=== PATIENT | female | born 1985 | race Caucasian/White ===

== ENCOUNTER 2016-12-12 15:18 | Outpatient (CLI) | payer OTHER ==
--- NOTE | 2016-12-12 16:01 | L&D Flow Sheet ---
LD Flowsheet Datetime Report Generated by CPN: 12/12/2016 16:00 Datetime: 12/12/2016 15:58 NBP Sys/Lona/Mean (mmHg): 126 (QS system process) : 68 (QS system process) : 91 (QS system process) Pulse: 79 (QS system process) Datetime: 12/12/2016 15:43 NBP Sys/Lona/Mean (mmHg): 118 (QS system process) : 62 (QS system process) : 85 (QS system process) Pulse: 86 (QS system process)
[2016-12-12 16:24] LABS: ABSOLUTE BASOPHILS # (AUTO) 0.1 10^3/uL (0.0-0.2); ABSOLUTE LYMPHOCYTES (AUTO) 2.6 10^3/uL (0.5-4.7); ABSOLUTE MONOCYTES (AUTO) 0.8 10^3/uL (0.1-1.4); ABSOLUTE NEUT (AUTO) 7.7 10^3/uL (1.7-8.2); BASOPHILS % (AUTO) 0.5 % (0-2); EOSINOPHILS % (AUTO) 0.4 % (0-6); HEMATOCRIT 32.6 % (36.0-47.0); HEMOGLOBIN 10.7 g/dL (12.0-15.5); HGB HCT DIFFERENCE -0.5; LYMPHOCYTES % (AUTO) 23.5 % (13-45); MEAN CORPUSCULAR HEMOGLOBIN 28.1 pg (27.0-33.4); MEAN CORPUSCULAR HGB CONC 32.9 g/dL (32.0-36.0); MEAN CORPUSCULAR VOLUME 85 fl (80-97); MONOCYTES % (AUTO) 7.3 % (3-13); RED BLOOD COUNT 3.82 10^6/uL (3.72-5.28); RED CELL DISTRIBUTION WIDTH 14.8 % (11.5-14.0); SEGMENTED NEUTROPHILS % (AUTO) 68.3 % (42-78); WHITE BLOOD COUNT 11.2 10^3/uL (4.0-10.5)
[2016-12-12 16:28] LABS: APPEARANCE,URINE SLIGHTLY-CLOUDY; BILIRUBIN,URINE NEGATIVE (NEGATIVE); GLUCOSE, URINE NEGATIVE (NEGATIVE); KETONES,URINE NEGATIVE (NEGATIVE); LEUKOCYTE ESTERASE,URINE NEGATIVE (NEGATIVE); NITRITE,URINE NEGATIVE (NEGATIVE); PROTEIN,URINE 30 mg/dL (NEGATIVE); URINE SPECIFIC GRAVITY 1.024
[2016-12-12 16:42] LABS: ALANINE AMINOTRANSFERASE 44 U/L (9-52); ALBUMIN 3.2 g/dL (3.5-5.0); ALKALINE PHOSPHATASE 127 U/L (38-126); ANION GAP 13 (5-19); ASPARTATE AMINO TRANSFERASE 29 U/L (14-36); BILIRUBIN,TOTAL 0.5 mg/dL (0.2-1.3); BLOOD UREA NITROGEN 10 mg/dL (7-20); CALCIUM 8.9 mg/dL (8.4-10.2); CARBON DIOXIDE 16 mmol/L (22-30); CHLORIDE 107 mmol/L (98-107); CREATININE RESULT 0.51 mg/dL (0.52-1.25); GLUCOSE 87 mg/dL (75-110); LDH 452 U/L (313-618); POTASSIUM 4.1 mmol/L (3.6-5.0); SODIUM 135.7 mmol/L (137-145); URIC ACID 5.1 mg/dL (2.5-6.2)
[2016-12-12 16:52] LABS: URINE BARBITURATES SCREEN NEGATIVE; URINE METHADONE SCREEN NEGATIVE; URINE OPIATES LOW NEGATIVE; URINE PHENCYCLIDINE SCREEN NEGATIVE
--- NOTE | 2016-12-12 17:56 | Non Stress Test Report ---
Non Stress Test Datetime Report Generated by CPN: 12/12/2016 17:55 DEMOGRAPHIC EGA NST: 40.0 INDICATION Indication for Study: Ordered by Provider Indication for Study (NST) Other: LABOR CHECK- ELEVATED BP'S MONITORING Monitor Explained: Monitor Explained; Test Explained; Patient Verbalized Understanding Time on Monitor: 12/20/2016 15:39 Time off Monitor: 12/12/2016 17:22 NST Duration: -12901 NST INTERVENTIONS NST Interventions: PO Hydration; Reposition Patient BABY A: [id number] BABY A Movement : Present Contraction Frequency : NONE FHR Baseline : 135 Accelerations : 15X15 Decelerations : None Variability : Moderate 6-25bpm NST Review: Meets Criteria for Reactive NST NST Review and Verified By : Tammie Camp RNC NST Results: Reactive NST REPORT Report Trigger: Send Report
--- NOTE | 2016-12-12 18:01 | L&D Flow Sheet ---
LD Flowsheet Datetime Report Generated by CPN: 12/12/2016 18:00 Datetime: 12/12/2016 17:22 Stage of : OB Triage (Sarah Rasheed RN) Respirations: 16 (Sarah Rasheed RN) Monitor Mode: External (Sarah Rasheed RN) Monitor Interventions for UA: [place]ley Adjusted (Sarah Rasheed RN) Frequency (min): NONE (Sarah Rasheed RN) Resting Tone (Palpate): Relaxed (Sarah Rasheed RN) Monitor Mode: External US (Sarah Rasheed RN) Monitor Interventions for FHR: Ultrasound Adjusted (Sarah Rasheed RN) FHR Baseline Rate : 135 (Sarah Rasheed RN) FHR Baseline Changes: No Baseline Change (Sarah Rasheed RN) Variability: Moderate 6-25 bpm (Sarah Rasheed RN) Accelerations: 15X15 (Sarah Rasheed RN) Decelerations: None (Sarah Rasheed, RN) Pain Scale: 0 (Sarah Rasheed, RN) Pain Presence: None/Denies (Sarah Rasheed, RN) Pain Relief Measures: Comfort Measures (Sarah Rasheed, RN) Patient Position/Activity: Left Lateral; Semi-Fowlers (Sarah Rasheed, RN) Comfort Measures: Family Support (Sarah Rasheed, RN) I/O Interventions: Up to BR (Sarah Rasheed, RN) Instructional Method: Verbal; Written; Patient Instructed; Family/Support Person Instructed; Verbalized Understanding (Sarah Rasheed, RN) Plan of Care: Plan of Care Discussed; Labor; Gestational Hypertension/Preeclampsia/Eclampsia (Sarah Rasheed, RN) Pain Management: Pain Scale/Goals; Comfort Measures (Sarah Rasheed, RN) Related: Common Discomforts of ; Maternal Physical Changes; Maternal Emotional Changes; Nutrition; Hydration; Activity and Rest (Sarah Rasheed, RN) Teaching Comments: LABOR SIGNS _ KICK COUNTS CARE NOTES (Sarah Rasheed, RN) Communication: RN at Bedside; RN Reviewed Strip; Provider Orders Received; Report Given to @ Carine MARTINEZ CNM (Sarah Rasheed, RN) Notification Reason: Status Update; Status; Uterine Activity; Maternal Vital Sign Change; Lab/Diagnostic Study (Sarah Rasheed, RN) Communication Comments: REVIEWED BP'S, LABS, STRIP REVIEWED- ORDERS TO D/C HOME. PT D/C IN STABLE CONDITION W/O C/O @ 3763 ACCOMPANIED BY FAMILY. (Sarah Rasheed, DOMINIQUE) LaborFlag: OB Triage (QS system process) Datetime: 12/12/2016 17:13 Stage of : OB Triage (Sarah Rasheed RN) NBP Sys/Lona/Mean (mmHg): 125 (QS system process) : 62 (QS system process) : 85 (QS system process) Pulse: 71 (QS system process) Respirations: 16 (Sarah Rasheed RN) Monitor Mode: External (Sarah Rasheed RN) Monitor Interventions for UA: [place]ley Adjusted (Sarah Rasheed RN) Frequency (min): NONE (Sarah Rasheed RN) Resting Tone (Palpate): Relaxed (Sarah Rasheed RN) Monitor Mode: External US (Sarah Rasheed RN) Monitor Interventions for FHR: Ultrasound Adjusted (Sarah Rasheed RN) FHR Baseline Changes: No Baseline Change (Sarah Rasheed RN) Variability: Moderate 6-25 bpm (Sarah Rasheed RN) Accelerations: 15X15 (Sarah Rasheed, DOMINIQUE) Decelerations: None (Sarah Rasheed RN) Pain Relief Measures: Comfort Measures (Sarah Rasheed RN) Patient Position/Activity: Left Tilt; Semi-Fowlers (Sarah Rasheed, DOMINIQUE) Comfort Measures: Family Support (Sarah Rasheed RN) Communication: RN at Bedside; RN Reviewed Strip (Sarah Rasheed RN) LaborFlag: OB Triage (QS system process) Datetime: 12/12/2016 16:58 NBP Sys/Lona/Mean (mmHg): 127 (QS system process) : 62 (QS system process) : 88 (QS system process) Pulse: 68 (QS system process) LaborFlag: OB Triage (QS system process) Datetime: 12/12/2016 16:45 Stage of : OB Triage (Sarah Rasheed RN) NBP Sys/Lona/Mean (mmHg): 132 (QS system process) : 63 (QS system process) : 90 (QS system process) Pulse: 64 (QS system process) Respirations: 16 (Sarah Rasheed RN) Monitor Mode: External (Sarah Rasheed RN) Frequency (min): NONE (Sarah Rasheed RN) Resting Tone (Palpate): Relaxed (Sarah Rasheed RN) Monitor Mode: External US (Sarah Rasheed RN) Monitor Interventions for FHR: Ultrasound Adjusted (Sarah Rasheed RN) FHR Baseline Rate : 135 (Sarah Rasheed RN) FHR Baseline Changes: No Baseline Change (Sarah Rasheed, DOMINIQUE) Variability: Moderate 6-25 bpm (Sarah Rasheed, RN) Accelerations: 15X15 (Sarah Rasheed, RN) Decelerations: None (Sarah Rasheed RN) Pain Presence: None/Denies (Sarah Rasheed RN) Pain Relief Measures: Comfort Measures (Sarah Rasheed RN) Patient Position/Activity: Left Tilt; Semi-Fowlers (Sarah Rasheed, DOMINIQUE) Comfort Measures: Family Support (Sarah Rasheed RN) Communication: RN at Bedside; RN Reviewed Strip (Sarah Rasheed RN) LaborFlag: OB Triage (QS system process) Datetime: 12/12/2016 16:31 I/O Interventions: Up to BR (Sarah Rasheed, RN) Datetime: 12/12/2016 16:29 NBP Sys/Lona/Mean (mmHg): 135 (QS system process) : 71 (QS system process) : 98 (QS system process) Pulse: 83 (QS system process) LaborFlag: OB Triage (QS system process) Datetime: 12/12/2016 16:13 Stage of : OB Triage (Sarah Rasheed RN) NBP Sys/Lona/Mean (mmHg): 129 (QS system process) : 74 (QS system process) : 95 (QS system process) Pulse: 73 (QS system process) Respirations: 16 (Sarah Rasheed, DOMINIQUE) Monitor Mode: External (Sarah Rasheed RN) Monitor Interventions for UA: [place]ley Adjusted (Sarah Rasheed, RN) Frequency (min): NONE (Sarah Rasheed, RN) Resting Tone (Palpate): Relaxed (Sarah Rasheed, DOMINIQUE) Monitor Mode: External US (Sarah Rasheed, RN) Monitor Interventions for FHR: Ultrasound Adjusted (Sarah Rasheed, DOMINIQUE) Comments: UTD -MOVING EFM (Sarah Rasheed, RN) Pain Presence: None/Denies (Sarah Rasheed, DOMINIQUE) Pain Type: N/A (Sarah Rasheed, DOMINIQUE) Pain Relief Measures: Comfort Measures (Sarah Rasheed, DOMINIQUE) Patient Position/Activity: Left Tilt; Semi-Fowlers (Sarah Rasheed, DOMINIQUE) Comfort Measures: Family Support (Sarah Rasheed, DOMINIQUE) Communication: RN at Bedside; RN Reviewed Strip (Sarah Rasheed, DOMINIQUE) LaborFlag: OB Triage (QS system process)
== END 2016-12-12 17:33 | disposition home or self-care (01) ==
LOC: LC 15:18
PROVIDERS: ATTEND Obstetrics & Gynecology
PROC: 4A1HXCZ Monitoring of Products of Conception, Cardiac Rate, External Approach (ICD-10-PCS; principal; 2016-12-12)
DX: O16.3 Unspecified maternal hypertension, third trimester (principal); Z3A.40 40 weeks gestation of pregnancy
CPT/HCPCS: 36415; 59025; 80053; 80307; 81001; 83615; 84550; 85025

== ENCOUNTER 2016-12-19 13:52 | Inpatient (IN) | payer OTHER ==
[2016-12-19] MEDS ORDERED: RINGERS SOLUTION,LACTATED 1,000 ML IV ONE (14:13)
[2016-12-19] MEDS ORDERED: RINGERS SOLUTION,LACTATED 1,000 ML IV PRN (14:13)
[2016-12-19 14:48] LABS: AMNISURE (ROM) POSITIVE (NEGATIVE)
[2016-12-19] MEDS ORDERED: OXYTOCIN/NORMAL SALINE 1,000 ML IV PRN (14:58)
[2016-12-19] MEDS ORDERED: OXYTOCIN/NORMAL SALINE 20 UNIT/1,000 ML RTUINJ ONE (15:03)
[2016-12-19 15:04] LABS: APPEARANCE,URINE SLIGHTLY-CLOUDY; BILIRUBIN,URINE NEGATIVE (NEGATIVE); GLUCOSE, URINE NEGATIVE (NEGATIVE); KETONES,URINE NEGATIVE (NEGATIVE); LEUKOCYTE ESTERASE,URINE NEGATIVE (NEGATIVE); NITRITE,URINE NEGATIVE (NEGATIVE); PROTEIN,URINE 30 mg/dL (NEGATIVE); URINE SPECIFIC GRAVITY 1.024; UROBILINOGEN,URINE NEGATIVE mg/dL (<2.0)
[2016-12-19] MEDS ORDERED: PENICILLIN G-K 5 MILLION UNIT VIAL ONE ×3 (15:04→23:32)
[2016-12-19 15:05] LABS: ABSOLUTE BASOPHILS # (AUTO) 0.1 10^3/uL (0.0-0.2); ABSOLUTE LYMPHOCYTES (AUTO) 2.4 10^3/uL (0.5-4.7); ABSOLUTE MONOCYTES (AUTO) 0.8 10^3/uL (0.1-1.4); ABSOLUTE NEUT (AUTO) 7.1 10^3/uL (1.7-8.2); BASOPHILS % (AUTO) 0.5 % (0-2); EOSINOPHILS % (AUTO) 0.2 % (0-6); HEMATOCRIT 33.5 % (36.0-47.0); HEMOGLOBIN 11.1 g/dL (12.0-15.5); HGB HCT DIFFERENCE -0.2; LYMPHOCYTES % (AUTO) 23.4 % (13-45); MEAN CORPUSCULAR HEMOGLOBIN 28.4 pg (27.0-33.4); MEAN CORPUSCULAR HGB CONC 33.2 g/dL (32.0-36.0); MEAN CORPUSCULAR VOLUME 86 fl (80-97); RED CELL DISTRIBUTION WIDTH 15.4 % (11.5-14.0); SEGMENTED NEUTROPHILS % (AUTO) 67.9 % (42-78); WHITE BLOOD COUNT 10.4 10^3/uL (4.0-10.5)
[2016-12-19 15:07] LABS: URINE BARBITURATES SCREEN NEGATIVE; URINE METHADONE SCREEN NEGATIVE; URINE OPIATES LOW NEGATIVE; URINE PHENCYCLIDINE SCREEN NEGATIVE
[2016-12-19 15:12] LABS: ALANINE AMINOTRANSFERASE 38 U/L (9-52); ALBUMIN 3.2 g/dL (3.5-5.0); ALKALINE PHOSPHATASE 140 U/L (38-126); ANION GAP 9 (5-19); ASPARTATE AMINO TRANSFERASE 21 U/L (14-36); BILIRUBIN,TOTAL 0.4 mg/dL (0.2-1.3); BLOOD UREA NITROGEN 11 mg/dL (7-20); CALCIUM 9.3 mg/dL (8.4-10.2); CARBON DIOXIDE 20 mmol/L (22-30); CHLORIDE 107 mmol/L (98-107); CREATININE RESULT 0.62 mg/dL (0.52-1.25); GLUCOSE 102 mg/dL (75-110); LDH 397 U/L (313-618); POTASSIUM 4.4 mmol/L (3.6-5.0); SODIUM 135.8 mmol/L (137-145); TOTAL PROTEIN 6.3 g/dL (6.3-8.2); URIC ACID 5.4 mg/dL (2.5-6.2)
--- NOTE | 2016-12-19 16:00 | L&D Flow Sheet ---
LD Flowsheet Datetime Report Generated by CPN: 12/19/2016 16:00 Datetime: 12/19/2016 15:47 NBP Sys/Lona/Mean (mmHg): 141 (QS system process) : 78 (QS system process) : 104 (QS system process) Pulse: 77 (QS system process) LaborFlag: OB Triage (QS system process) Datetime: 12/19/2016 15:45 Pitocin (milliunit): Pitocin Increased to (milliunits) @ 4 (Caron Vitrano, RN) Datetime: 12/19/2016 15:33 NBP Sys/Lona/Mean (mmHg): 156 (QS system process) : 91 (QS system process) : 116 (QS system process) Pulse: 93 (QS system process) LaborFlag: OB Triage (QS system process) Datetime: 12/19/2016 15:31 I/O Interventions: Up to BR (Caron Vitrano, RN) Datetime: 12/19/2016 15:28 Temperature (F): 98.5 (Caron Vitrano, RN) Temperature (C): 36.9 (QS system process) Temperature Route: Axillary (Caron Vitrano, RN) LaborFlag: OB Triage (QS system process) Datetime: 12/19/2016 15:20 Pitocin (milliunit): Pitocin Started (milliunits) @ 2; Pitocin 20 Units in 1000ml NS (Caronheydi Elkins, RN) Antibiotics: Start Antibiotics; Penicillin IV (Units) @ [id number] (Caron Severo, RN) Datetime: 12/19/2016 15:15 I/O Interventions: Up to BR (Caron Randano, RN) Datetime: 12/19/2016 15:13 Monitor Interventions for FHR: Ultrasound Adjusted (Caron Vitrano, RN) Datetime: 12/19/2016 15:12 IV/Blood Work: IV Infusing per Order; New IV Bag Hung; IV Bag Number @ 2 (Caron DOMINIQUE Elkins) Patient Care Comments: 125 mL/hour (Caron Severo RN) Instructional Method: Verbal; Patient Instructed; Family/Support Person Instructed; Verbalized Understanding (Caron Elkins RN) Plan of Care: Plan of Care Discussed (Caron Elkins RN) Teaching Comments: Answered pt questions (Caron DOMINIQUE Elkins) Datetime: 12/19/2016 15:06 I/O Interventions: Up to BR (Caron Vitrano, RN) Datetime: 12/19/2016 15:02 NBP Sys/Lona/Mean (mmHg): 139 (QS system process) : 63 (QS system process) : 90 (QS system process) Pulse: 74 (QS system process) LaborFlag: OB Triage (QS system process) Datetime: 12/19/2016 14:59 Communication Comments: Dr. Kelly on unit, reviewed strip. Reviewed pt history, nursing assessment, SVE, toco tracing, FHTs. Orders received to start Pitocin 20 units at 2 mU/min increasing q 30 by 2 mU/min to a max of 20 mU/min or until an adequate pattern of labor is established. (Caron Severo, RN) Datetime: 12/19/2016 14:50 Membrane Status: Ruptured (Caron Vitrano, RN) Membranes Rupture Method: Spontaneous (Caron Vitrano, RN) Datetime: 12/19/2016 14:49 I/O Interventions: Up to BR (Caron Vitrano, RN) Datetime: 12/19/2016 14:40 Patient Care Comments: Consents reviewed and signed (Caron Vitrano, RN) Datetime: 12/19/2016 14:37 NBP Sys/Lona/Mean (mmHg): 148 (QS system process) : 97 (QS system process) : 108 (QS system process) Pulse: 86 (QS system process) Respirations: 16 (Caron Vitrano, RN) LaborFlag: OB Triage (QS system process) Datetime: 12/19/2016 14:33 Patient Care Comments: Labs drawn (Caron Vitrano, RN) Datetime: 12/19/2016 14:30 Monitor Mode: External; Palpation (Tammie Camp, RNC) Frequency (min): irregular (Tammie Camp, RNC) Quality: Mild (Tammie Camp, RNC) Duration (sec): 50-70 (Tammie Camp, RNC) Duration Criteria: Less than Two 120 Second Contractions (Tammie Camp, RNC) Pattern: Normal: <= 5 Contractions in 10 Minutes (Tammie Camp, RNC) Resting Tone (Palpate): Relaxed (Tammie Camp, RNC) Monitor Mode: External US; Auscultation (Tammie Camp, RNC) FHR Baseline Rate : 135 (Tammie Camp, RNC) FHR Baseline Changes: No Baseline Change (Tammie Camp, RNC) Variability: Moderate 6-25 bpm (Tammie Camp, RNC) Accelerations: 15X15 (Tammie Camp, RNC) Decelerations: None (Tammie Camp, RNC) Datetime: 12/19/2016 14:25 Patient Care Comments: Amnisure collected and sent (Caron Vitrano, RN) Datetime: 12/19/2016 14:24 IV/Blood Work: IV Started; IV Bolus Started (Caron Vitrano, RN) Patient Care Comments: 18 G R wrist site WNL, LR bolusing per order (Caron Vitrano, RN) Datetime: 12/19/2016 14:17 NBP Sys/Lona/Mean (mmHg): 147 (QS system process) : 84 (QS system process) : 109 (QS system process) Pulse: 89 (QS system process) Respirations: 16 (Caron Randano, RN) Pain Scale: 0 (Caron Vitrano, RN) Pain Presence: None/Denies (Caron Vitrano, RN) Pain Type: N/A (Caron Vitrano, RN) Vaginal Bleeding: None (Caron Vitrano, RN) Level of Consciousness: Fully Conscious (Caron Vitrano, RN) DTR's/Clonus: DTRs 2+; No Clonus (Caron Vitrano, RN) Headache: Denies (Caron Vitrano, RN) Breath Sounds, Left: Clear and Equal (Caron Vitrano, RN) Breath Sounds, Right: Clear and Equal (Caron Vitrano, RN) Nausea/Vomiting: Denies (Caron Vitrano, RN) RUQ Epigastric Pain: Denies (Caron Vitrano, RN) LaborFlag: OB Triage (QS system process) Datetime: 12/19/2016 14:14 Patient Position/Activity: Right Tilt; Semi-Fowlers (Caron Elkins RN) I/O Interventions: Clear Liquids Given (Caron Elkins RN) Instructional Method: Verbal; Patient Instructed; Family/Support Person Instructed; Verbalized Understanding (Caron Vitrano, RN) Plan of Care: Plan of Care Discussed (Caron Elkins RN) Unit Routine: [place] to Room; Call Bryson; Bed; Unit Personnel; Monitoring; Safety/Fall Risk Prevention; Bathroom Privileges (Caron Elkins RN)
[2016-12-19] MEDS ORDERED: ONDANSETRON HCL INJ/PF 4 MG/2 ML SDV IV ONE (16:38)
[2016-12-19] MEDS ORDERED: ONDANSETRON HCL INJ/PF 4 MG/2 ML SDV ONE (16:38)
[2016-12-19] MEDS ORDERED: NALBUPHINE HCL INJ 10 MG/1 ML AMPULE INJ ONE (17:25)
[2016-12-19] MEDS ORDERED: NALBUPHINE HCL INJ 10 MG/1 ML AMPULE ONE ×2 (17:26→17:36)
[2016-12-19] MEDS ORDERED: NALBUPHINE HCL INJ 10 MG/1 ML AMPULE IM ONE (17:37)
--- NOTE | 2016-12-19 18:00 | L&D Flow Sheet ---
LD Flowsheet Datetime Report Generated by CPN: 12/19/2016 18:00 Datetime: 12/19/2016 17:57 NBP Sys/Lona/Mean (mmHg): 164 (QS system process) : 85 (QS system process) : 117 (QS system process) Pulse: 87 (QS system process) Patient Position/Activity: Left Lateral; Peanut Ball (Caron Vitrano, RN) LaborFlag: OB Triage (QS system process) Datetime: 12/19/2016 17:45 Monitor Mode: External (Caron Vitrano, RN) Frequency (min): 2-4 (Caron Vitrano, RN) Quality: Mild/Moderate (Caron Vitrano, RN) Duration (sec): 50-70 (Caron Vitrano, RN) Duration Criteria: Less than Two 120 Second Contractions (Caron Vitrano, RN) Pattern: Normal: <= 5 Contractions in 10 Minutes (Caron Vitrano, RN) Resting Tone (Palpate): Relaxed (Caron Vitrano, RN) Monitor Mode: External US (Caron Vitrano, RN) FHR Baseline Rate : 130 (Caron Vitrano, RN) Variability: Moderate 6-25 bpm (Caron Vitrano, RN) Accelerations: 15X15 (Caron Vitrano, RN) Decelerations: Early (Caron Vitrano, RN) Pitocin (milliunit): Pitocin Increased to (milliunits) @ 12 (Caron Vitrano, RN) Datetime: 12/19/2016 17:39 Medication Comments: Nubain 10 mg IM (Caron Vitrano, RN) Datetime: 12/19/2016 17:34 Communication Comments: Orders received from Kiana Kebede, [facility] to also administer Nubain 10 mg IM x1 now (Caron Vitrano, RN) Datetime: 12/19/2016 17:32 Temperature (F): 98.1 (Caron Vitrano, RN) Temperature (C): 36.7 (QS system process) Temperature Route: Oral (Caron Vitrano, RN) LaborFlag: OB Triage (QS system process) Datetime: 12/19/2016 17:31 Monitor Interventions for UA: Corn Adjusted (Caron Vitrano, RN) Monitor Interventions for FHR: Ultrasound Adjusted (Caron Vitrano, RN) Datetime: 12/19/2016 17:30 Monitor Mode: External; Palpation (Caron Vitrano, RN) Frequency (min): Irregular (Caron Vitrano, RN) Quality: Mild/Moderate (Caron Vitrano, RN) Duration (sec): 40-60 (Caron Vitrano, RN) Duration Criteria: Less than Two 120 Second Contractions (Caron Vitrano, RN) Pattern: Normal: <= 5 Contractions in 10 Minutes (Caron Vitrano, RN) Resting Tone (Palpate): Relaxed (Caron Vitrano, RN) Monitor Mode: External US (Caron Vitrano, RN) FHR Baseline Rate : 135 (Caron Vitrano, RN) Variability: Moderate 6-25 bpm (Caron Vitrano, RN) Accelerations: 15X15 (Caron Vitrano, RN) Decelerations: None (Caron Vitrano, RN) Pitocin (milliunit): Pitocin Remains (milliunits) @ 10 (Caron Vitrano, RN) I/O Interventions: Ice Chips Given (Caron Vitrano, RN) Datetime: 12/19/2016 17:29 Monitor Interventions for UA: Corn Adjusted (Caron Vitrano, RN) Datetime: 12/19/2016 17:28 Medication Comments: Nubain 10 mg IV (Caron Elkins, RN) Datetime: 12/19/2016 17:24 Communication Comments: Call to Dr. Kelly, reviewed pt condition, SVE, toco tracing, FHTs, pt request for medication. Orders for Nubain 10 mg IV x1 now and epidural PRN. (Caron Elkins RN) Datetime: 12/19/2016 17:19 Instructional Method: Verbal; Patient Instructed; Family/Support Person Instructed; Verbalized Understanding (Caron Elkins RN) Plan of Care: Plan of Care Discussed (Caron Elkins RN) Pain Management: PRN Medications; Pain Scale/Goals; Comfort Measures (Caron Elkins RN) Teaching Comments: Reviewed pain management and pt desires and interventions. Pt requests IV medication at this time. (Caron Elkins RN) Datetime: 12/19/2016 17:18 Pain Coping: Requesting Pain Medication or Epidural (Caron Elkins RN) Dilatation (cm): 2.0 (Caron Elkins RN) Effacement (%): 90 (Caron Elkins RN) Station: -1 (Caron Elkins RN) Exam by: Erica Elkins RN (Caron Elkins RN) Datetime: 12/19/2016 17:15 Contraction Comments: Pt off monitor in restroom; unable to assess tracing (Caron Elkins RN) Comments: Pt off monitor in restroom; unable to assess tracing (Caron Elkins RN) Pitocin (milliunit): Pitocin Increased to (milliunits) @ 10 (Caron Elkins RN) Datetime: 12/19/2016 17:14 Monitor Interventions for UA: Corn Adjusted (Caron Vitrano, RN) Monitor Interventions for FHR: Ultrasound Adjusted (Caron Vitrano, RN) Patient Position/Activity: Left Lateral (Caron Vitrano, RN) Datetime: 12/19/2016 17:00 Monitor Mode: External; Palpation (Caron Vitrano, RN) Frequency (min): 2-5 (Caron Vitrano, RN) Quality: Mild (Caron Vitrano, RN) Duration (sec): 50-70 (Caron Vitrano, RN) Duration Criteria: Less than Two 120 Second Contractions (Caron Vitrano, RN) Pattern: Normal: <= 5 Contractions in 10 Minutes (Caron Vitrano, RN) Resting Tone (Palpate): Relaxed (Caron Vitrano, RN) Monitor Mode: External US (Caron Vitrano, RN) FHR Baseline Rate : 135 (Caron Vitrano, RN) Variability: Moderate 6-25 bpm (Caron Vitrano, RN) Accelerations: 15X15 (Caron Vitrano, RN) Decelerations: None (Caron Vitrano, RN) Pitocin (milliunit): Pitocin Remains (milliunits) @ 8 (Caron Vitrano, RN) Datetime: 12/19/2016 16:57 I/O Interventions: Up to BR (Caron Vitrano, RN) Datetime: 12/19/2016 16:48 NBP Sys/Lona/Mean (mmHg): 125 (QS system process) : 66 (QS system process) : 89 (QS system process) Pulse: 76 (QS system process) Respirations: 16 (Caron Vitrano, RN) LaborFlag: OB Triage (QS system process) Datetime: 12/19/2016 16:45 Monitor Mode: External; Palpation (Caron Vitrano, RN) Frequency (min): Irregular (Caron Vitrano, RN) Quality: Mild (Caron Vitrano, RN) Duration (sec): 50-60 (Caron Vitrano, RN) Duration Criteria: Less than Two 120 Second Contractions (Caron Vitrano, RN) Pattern: Normal: <= 5 Contractions in 10 Minutes (Caron Vitrano, RN) Resting Tone (Palpate): Relaxed (Caron Vitrano, RN) Monitor Mode: External US (Caron Vitrano, RN) FHR Baseline Rate : 145 (Caron Vitrano, RN) Variability: Moderate 6-25 bpm (Caron Vitrano, RN) Accelerations: 15X15 (Caron Vitrano, RN) Decelerations: None (Caron Vitrano, RN) Pitocin (milliunit): Pitocin Increased to (milliunits) @ 8 (Caron Vitrano, RN) Datetime: 12/19/2016 16:44 Monitor Interventions for UA: Corn Adjusted (Caron Vitrano, RN) Datetime: 12/19/2016 16:40 Medication Comments: Zofran 8 mg IV (Caron Vitrano, RN) Datetime: 12/19/2016 16:39 Patient Position/Activity: Right Tilt; Semi-Fowlers (Caron Vitrano, RN) Patient Care Comments: Pt back to bed in stable condition (Caron Vitrano, RN) Datetime: 12/19/2016 16:34 I/O Interventions: Up to BR (Caron Vitrano, RN) Patient Care Comments: Pt complaining of nausea. (Caron Vitrano, RN) Communication Comments: Orders received from Dr. Kelly for Zofran 8 mg IV x1 now for nausea. (Caron Vitrano, RN) Datetime: 12/19/2016 16:30 Monitor Mode: External (Caron Vitrano, RN) Frequency (min): Irregular (Caron Vitrano, RN) Quality: Mild (Caron Vitrano, RN) Duration (sec): 40-60 (Caron Vitrano, RN) Duration Criteria: Less than Two 120 Second Contractions (Caron Vitrano, RN) Pattern: Normal: <= 5 Contractions in 10 Minutes (Caron Vitrano, RN) Resting Tone (Palpate): Relaxed (Caron Vitrano, RN) Monitor Mode: External US (Caron Vitrano, RN) FHR Baseline Rate : 145 (Caron Vitrano, RN) Variability: Moderate 6-25 bpm (Caron Vitrano, RN) Accelerations: 15X15 (Caron Vitrano, RN) Decelerations: None (Caron Vitrano, RN) Comments: Tracing maternal d/t pt movement. RN at bedside adjusting US. (Caron Vitrano, RN) Pitocin (milliunit): Pitocin Remains (milliunits) @ 6 (Caron Vitrano, RN) Datetime: 12/19/2016 16:21 I/O Interventions: Up to BR (Caron Vitrano, RN) Datetime: 12/19/2016 16:17 NBP Sys/Lona/Mean (mmHg): 138 (QS system process) : 83 (QS system process) : 106 (QS system process) Pulse: 86 (QS system process) Respirations: 16 (Caron Vitrano, RN) LaborFlag: OB Triage (QS system process) Datetime: 12/19/2016 16:15 Monitor Mode: External (Caron Vitrano, RN) Frequency (min): Occasional (Caron Vitrano, RN) Quality: Mild (Caron Vitrano, RN) Duration (sec): 50-60 (Caron Vitrano, RN) Duration Criteria: Less than Two 120 Second Contractions (Caron Vitrano, RN) Pattern: Normal: <= 5 Contractions in 10 Minutes (Caron Vitrano, RN) Resting Tone (Palpate): Relaxed (Caron Vitrano, RN) Monitor Mode: External US (Caron Vitrano, RN) FHR Baseline Rate : 145 (Caron Vitrano, RN) Variability: Moderate 6-25 bpm (Caron Vitrano, RN) Accelerations: 15X15 (Caron Elkins, RN) Decelerations: None (Caron Elkins, RN) Pain Presence: Intermittent (Caron Elkins RN) Pain Type: Cramping (Caron Elkins RN) Pain Location: Back (Caron Elkins RN) Pain Relief Measures: Comfort Measures (Caron Elkins RN) Pain Assessment Comments: Warm pack provided (Caron Elkins RN) Pitocin (milliunit): Pitocin Increased to (milliunits) @ 6 (Caron Elkins RN) LaborFlag: OB Triage (QS system process) Datetime: 12/19/2016 16:07 Monitor Interventions for UA: Corn Adjusted (Caron Elkins RN) Patient Care Comments: Up to rocking chair (Caron Elkins RN) Datetime: 12/19/2016 16:00 Monitor Mode: External; Palpation (Caron Elkins RN) Frequency (min): Occasional (Caron Elkins RN) Quality: Mild (Caron Elkins RN) Duration (sec): 50-60 (Caron Elkins RN) Duration Criteria: Less than Two 120 Second Contractions (Caron Elkins RN) Pattern: Normal: <= 5 Contractions in 10 Minutes (Caron Elkins RN) Resting Tone (Palpate): Relaxed (Caron Elkins RN) Monitor Mode: External US (Caron Elkins RN) FHR Baseline Rate : 145 (Caron Elkins RN) Variability: Moderate 6-25 bpm (Caron Elkins RN) Accelerations: 15X15 (Caron Elkins RN) Decelerations: None (Caron Elkins RN) Pitocin (milliunit): Pitocin Remains (milliunits) @ 4 (Caron Elkins RN) I/O Interventions: Up to BR (Caron Elkins RN)
[2016-12-19] MEDS ORDERED: BUPIVACAINE HCL 0.25 % INJ/PF (2.5 MG/1 ML) 30 ML VIAL ONE (18:33)
[2016-12-19] MEDS ORDERED: EPHEDRINE SULFATE INJ 50 MG/1 ML AMPULE ONE (18:33)
[2016-12-19] MEDS ORDERED: PHENYLEPHRINE HCL INJ/PF 10 MG/1 ML SDV ONE (18:33)
[2016-12-19] MEDS ORDERED: FENTANYL/BUPIVACAINE/NS/PF 200 MCG/100 ML RTUINJ EPI ONE (18:33)
[2016-12-19] MEDS ORDERED: FENTANYL CITRATE INJ/PF 100 MCG/2 ML AMPUL ONE (18:33)
[2016-12-19] MEDS ORDERED: PENICILLIN G POTASSIUM 2,500,000 UNIT in DEXTROSE 5%-WATER 50 ML IV SCH (19:25)
[2016-12-19] MEDS: PENICILLIN G-K 5 MILLION UNIT VIAL IV SCH ×2 (19:57→23:45)
--- NOTE | 2016-12-19 20:01 | L&D Flow Sheet ---
LD Flowsheet Datetime Report Generated by CPN: 12/19/2016 20:00 Datetime: 12/19/2016 19:50 Antibiotics: Penicillin IV (Units) @ 2,500,000 (Caron Vitrano, RN) Datetime: 12/19/2016 19:49 NBP Sys/Lona/Mean (mmHg): 131 (QS system process) : 62 (QS system process) : 89 (QS system process) Pulse: 100 (QS system process) LaborFlag: OB Triage (QS system process) Datetime: 12/19/2016 19:45 Monitor Interventions for FHR: Ultrasound Adjusted (Caron Vitrano, RN) IV/Blood Work: IV Infusing per Order (Caron Vitrano, RN) Patient Care Comments: 125 mL/hour (Caron Vitrano, RN) Datetime: 12/19/2016 19:44 NBP Sys/Lona/Mean (mmHg): 129 (QS system process) : 58 (QS system process) : 84 (QS system process) Pulse: 86 (QS system process) Monitor Interventions for UA: [place] Adjusted (Caron Vitrano, RN) LaborFlag: OB Triage (QS system process) Datetime: 12/19/2016 19:43 IV/Blood Work: New IV Bag Hung (Caron Vitrano, RN) Datetime: 12/19/2016 19:42 NBP Sys/Lona/Mean (mmHg): 138 (QS system process) : 60 (QS system process) : 86 (QS system process) Pulse: 78 (QS system process) Monitor Interventions for UA: [place] Adjusted (Caron Vitrano, RN) LaborFlag: OB Triage (QS system process) Datetime: 12/19/2016 19:41 Medication Comments: Ephedrine 5 mg IV (Caron Vitrano, RN) Datetime: 12/19/2016 19:40 NBP Sys/Lona/Mean (mmHg): 117 (QS system process) : 59 (QS system process) : 84 (QS system process) Pulse: 82 (QS system process) Monitor Interventions for UA: [place] Adjusted (Caron Elkins RN) LaborFlag: OB Triage (QS system process) Datetime: 12/19/2016 19:38 NBP Sys/Lona/Mean (mmHg): 118 (QS system process) : 58 (QS system process) : 84 (QS system process) Pulse: 83 (QS system process) Medication Comments: Ephedrine 5 mg IV (Caron Elkins RN) IV/Blood Work: IV Bolus Started (Caron Elkins RN) Patient Position/Activity: Right Lateral (Caron Elkins RN) LaborFlag: OB Triage (QS system process) Datetime: 12/19/2016 19:34 NBP Sys/Lona/Mean (mmHg): 139 (QS system process) : 79 (QS system process) : 102 (QS system process) Pulse: 77 (QS system process) LaborFlag: OB Triage (QS system process) Datetime: 12/19/2016 19:32 Monitor Interventions for UA: [place] Adjusted (Caron Vitrano, RN) Monitor Interventions for FHR: Ultrasound Adjusted (Caron Vitrano, RN) Patient Position/Activity: Left Lateral; Peanut Ball (Caron Vitrano, RN) Datetime: 12/19/2016 19:29 NBP Sys/Lona/Mean (mmHg): 130 (QS system process) : 71 (QS system process) : 94 (QS system process) Pulse: 67 (QS system process) LaborFlag: OB Triage (QS system process) Datetime: 12/19/2016 19:24 NBP Sys/Lona/Mean (mmHg): 131 (QS system process) : 72 (QS system process) : 94 (QS system process) Pulse: 75 (QS system process) LaborFlag: OB Triage (QS system process) Datetime: 12/19/2016 19:19 NBP Sys/Lona/Mean (mmHg): 124 (QS system process) : 67 (QS system process) : 91 (QS system process) Pulse: 72 (QS system process) LaborFlag: OB Triage (QS system process) Datetime: 12/19/2016 19:15 Monitor Mode: External; Palpation (Caron Vitrano, RN) Frequency (min): 1-5 (Caron Vitrano, RN) Quality: Mild/Moderate (Caron Vitrano, RN) Duration (sec): 50-70 (Caron Vitrano, RN) Duration Criteria: Less than Two 120 Second Contractions (Caron Vitrano, RN) Pattern: Normal: <= 5 Contractions in 10 Minutes (Caron Vitrano, RN) Resting Tone (Palpate): Relaxed (Caron Vitrano, RN) Monitor Mode: External US (Caron Vitrano, RN) FHR Baseline Rate : 125 (Caron Vitrano, RN) Variability: Moderate 6-25 bpm (Caron Vitrano, RN) Accelerations: None (Caron Vitrano, RN) Decelerations: None (Caron Vitrano, RN) Pitocin (milliunit): Pitocin Remains (milliunits) @ 14 (Caron Vitrano, RN) Datetime: 12/19/2016 19:14 NBP Sys/Lona/Mean (mmHg): 116 (QS system process) : 55 (QS system process) : 79 (QS system process) Pulse: 78 (QS system process) Respirations: 16 (Caron Vitrano, RN) LaborFlag: OB Triage (QS system process) Datetime: 12/19/2016 19:11 IV/Blood Work: IV Infusing per Order (Caron Elkins RN) Patient Care Comments: 125 mL/hour (Caron Elkins RN) Datetime: 12/19/2016 19:10 Pitocin (milliunit): Pitocin Increased to (milliunits) @ 14 (Caron Elkins RN) Datetime: 12/19/2016 19:08 NBP Sys/Lona/Mean (mmHg): 117 (QS system process) : 52 (QS system process) : 75 (QS system process) Pulse: 75 (QS system process) Dilatation (cm): 3.0 (Caron Elkins RN) Effacement (%): 90 (Caron Elkins RN) Station: -1 (Caron Elkins RN) Exam by: Erica Elkins RN (aCron Elkins RN) LaborFlag: OB Triage (QS system process) Datetime: 12/19/2016 19:07 NBP Sys/Lona/Mean (mmHg): 116 (QS system process) : 52 (QS system process) : 75 (QS system process) Pulse: 76 (QS system process) Respirations: 16 (Caron Vitrano, RN) LaborFlag: OB Triage (QS system process) Datetime: 12/19/2016 19:06 NBP Sys/Lona/Mean (mmHg): 118 (QS system process) : 53 (QS system process) : 77 (QS system process) Pulse: 74 (QS system process) I/O Interventions: Arriola Cath Inserted (Caron Vitrano, RN) LaborFlag: OB Triage (QS system process) Datetime: 12/19/2016 19:05 NBP Sys/Lona/Mean (mmHg): 115 (QS system process) : 52 (QS system process) : 75 (QS system process) Pulse: 81 (QS system process) LaborFlag: OB Triage (QS system process) Datetime: 12/19/2016 19:04 NBP Sys/Lona/Mean (mmHg): 111 (QS system process) : 51 (QS system process) : 74 (QS system process) Pulse: 76 (QS system process) Respirations: 16 (Caron Vitrano, RN) LaborFlag: OB Triage (QS system process) Datetime: 12/19/2016 19:03 NBP Sys/Lona/Mean (mmHg): 118 (QS system process) : 57 (QS system process) : 82 (QS system process) Pulse: 71 (QS system process) LaborFlag: OB Triage (QS system process) Datetime: 12/19/2016 19:02 NBP Sys/Lona/Mean (mmHg): 117 (QS system process) : 56 (QS system process) : 81 (QS system process) Pulse: 74 (QS system process) Respirations: 16 (Caron Vitrano, RN) Pain Presence: None/Denies (Caron Vitrano, RN) Pain Type: N/A (Caron Vitrano, RN) LaborFlag: OB Triage (QS system process) Datetime: 12/19/2016 19:01 NBP Sys/Lona/Mean (mmHg): 122 (QS system process) : 56 (QS system process) : 81 (QS system process) Pulse: 77 (QS system process) Monitor Interventions for UA: [place] Adjusted (Caron Randano, RN) Monitor Interventions for FHR: Ultrasound Adjusted (Caron Randano, RN) Patient Position/Activity: Right Tilt; Low Fowlers (Caron Vitrano, RN) LaborFlag: OB Triage (QS system process) Datetime: 12/19/2016 19:00 NBP Sys/Lona/Mean (mmHg): 126 (QS system process) : 72 (QS system process) : 92 (QS system process) Pulse: 88 (QS system process) Contraction Comments: UTD d/t maternal position and habitus (Caron Elkins RN) Comments: Broken tracing d/t pt position for epidural and pt habitus. RN adjusting US (Caron Elkins RN) Pitocin (milliunit): Pitocin Remains (milliunits) @ 12 (Caron Elkins RN) Anesthesia Plans: Epidural (Caron Elkins RN) Epidural Procedure Other: Pump Started (Caron Elkins RN) LaborFlag: OB Triage (QS system process) Datetime: 12/19/2016 18:59 NBP Sys/Lona/Mean (mmHg): 135 (QS system process) : 74 (QS system process) : 98 (QS system process) Pulse: 84 (QS system process) Respirations: 16 (Caron Elkins RN) LaborFlag: OB Triage (QS system process) Datetime: 12/19/2016 18:58 NBP Sys/Lona/Mean (mmHg): 134 (QS system process) : 72 (QS system process) : 97 (QS system process) Pulse: 80 (QS system process) Anesthesia Plans: Epidural (Caron Vitrano, RN) Epidural Procedure: Loading Dose (Caron Vitrano, RN) LaborFlag: OB Triage (QS system process) Datetime: 12/19/2016 18:57 NBP Sys/Lona/Mean (mmHg): 134 (QS system process) : 71 (QS system process) : 95 (QS system process) Pulse: 82 (QS system process) Respirations: 16 (Caron Vitrano, RN) LaborFlag: OB Triage (QS system process) Datetime: 12/19/2016 18:56 NBP Sys/Lona/Mean (mmHg): 135 (QS system process) : 73 (QS system process) : 98 (QS system process) Pulse: 78 (QS system process) Pulse: 75 (QS system process) SpO2 (%): 98 (QS system process) Anesthesia Plans: Epidural (Caron Vitrano, RN) Epidural Procedure: Cath Placed (Caron Vitrano, RN) Epidural Procedure: Test Dose (Caron Vitrano, RN) LaborFlag: OB Triage (QS system process) Datetime: 12/19/2016 18:55 NBP Sys/Lona/Mean (mmHg): 147 (QS system process) : 79 (QS system process) : 105 (QS system process) Pulse: 88 (QS system process) LaborFlag: OB Triage (QS system process) Datetime: 12/19/2016 18:54 NBP Sys/Lona/Mean (mmHg): 130 (QS system process) : 78 (QS system process) : 98 (QS system process) Pulse: 86 (QS system process) LaborFlag: OB Triage (QS system process) Datetime: 12/19/2016 18:53 NBP Sys/Lona/Mean (mmHg): 135 (QS system process) : 82 (QS system process) : 102 (QS system process) Pulse: 76 (QS system process) Anesthesia Comments: Catheter in blood vessel and d/c; catheter intact. (Caron Elkins RN) LaborFlag: OB Triage (QS system process) Datetime: 12/19/2016 18:52 NBP Sys/Lona/Mean (mmHg): 135 (QS system process) : 77 (QS system process) : 100 (QS system process) Pulse: 79 (QS system process) Anesthesia Plans: Epidural (Caron Vitrano, RN) Epidural Procedure: Cath Placed (Caron Severo RN) LaborFlag: OB Triage (QS system process) Datetime: 12/19/2016 18:51 Pulse: 76 (QS system process) SpO2 (%): 97 (QS system process) Anesthesia Plans: Epidural (Caron Vitrano, RN) Epidural Procedure: Test Dose (Caron Vitrano, RN) LaborFlag: OB Triage (QS system process) Datetime: 12/19/2016 18:47 NBP Sys/Lona/Mean (mmHg): 129 (QS system process) : 74 (QS system process) : 95 (QS system process) Pulse: 90 (QS system process) Respirations: 16 (Caron Vitrano, RN) LaborFlag: OB Triage (QS system process) Datetime: 12/19/2016 18:46 Procedure Verify: Correct Patient Identity; Correct Side and Site are Marked; Accurate Procedure Consent Form; Agreement on Procedure to be Done; Correct Patient Position; Relevant Images and Results are Properly Labeled and Displayed; Addressed Need to Administer Antibiotics or Fluids for Irrigation; Safety Precautions Based on Patient History or Medication Use (Caron Elkins RN) Anesthesia Plans: Epidural (Caron Elkins RN) Epidural Positioning: Sitting (Caron Elkins RN) Anesthesia Comments: Dr. Thomson at bedside for epidural (Caron Elkins RN) Datetime: 12/19/2016 18:45 Pulse: 78 (QS system process) SpO2 (%): 97 (QS system process) Contraction Comments: UTD d/t maternal position and habitus (Caron Elkins RN) Comments: Broken tracing d/t pt position for epidural and pt habitus. RN adjusting US (Caron Elkins RN) Pitocin (milliunit): Pitocin Remains (milliunits) @ 12 (Caron Elkins RN) LaborFlag: OB Triage (QS system process) Datetime: 12/19/2016 18:43 Pulse: 87 (QS system process) SpO2 (%): 93 (QS system process) LaborFlag: OB Triage (QS system process) Datetime: 12/19/2016 18:40 Pulse: 80 (QS system process) SpO2 (%): 100 (QS system process) LaborFlag: OB Triage (QS system process) Datetime: 12/19/2016 18:39 Anesthesia Plans: Epidural (Caron Vitrano, RN) Epidural Positioning: Sitting (Caron Vitrano, RN) Datetime: 12/19/2016 18:34 I/O Interventions: Up to BR (Caron Vitrano, RN) Datetime: 12/19/2016 18:32 Procedure Verify: Correct Patient Identity; Correct Side and Site are Marked; Accurate Procedure Consent Form; Agreement on Procedure to be Done; Relevant Images and Results are Properly Labeled and Displayed; Addressed Need to Administer Antibiotics or Fluids for Irrigation; Safety Precautions Based on Patient History or Medication Use (Caron Vitrano, RN) Anesthesia Plans: Epidural (Caron Vitrano, RN) Anesthesia Comments: Dr. Thomson called for epidural (Caron Vitrano, RN) Datetime: 12/19/2016 18:30 Monitor Mode: External (Caron Vitrano, RN) Frequency (min): 1-4 (Caron Vitrano, RN) Quality: Mild/Moderate (Caron Vitrano, RN) Duration (sec): 50-80 (Caron Vitrano, RN) Duration Criteria: Less than Two 120 Second Contractions (Caron Vitrano, RN) Pattern: Normal: <= 5 Contractions in 10 Minutes (Caron Elkins RN) Resting Tone (Palpate): Relaxed (Caron Elkins RN) Monitor Mode: External US (Caron Elkins RN) FHR Baseline Rate : 120 (Caron Elkins, RN) Variability: Moderate 6-25 bpm (Caron Elkins, RN) Accelerations: None (Caron Elkins RN) Decelerations: None (Caron Elkins RN) Pitocin (milliunit): Pitocin Remains (milliunits) @ 12 (Caron Elkins, DOMINIQUE) Datetime: 12/19/2016 18:24 Monitor Interventions for UA: [place] Adjusted (Caron Elkins RN) Monitor Interventions for FHR: Ultrasound Adjusted (Caron Elkins RN) Pain Presence: Intermittent (Caron Elkins RN) Pain Type: Cramping (Caron Elkins RN) Pain Location: Abdomen; Back (Caron Elkins RN) Pain Relief Measures: Comfort Measures (Caron Elkins RN) Pain Coping: Requesting Pain Medication or Epidural (Caron Elkins RN) Pain Assessment Comments: Requesting epidural; bolus started (Caron Elkins RN) IV/Blood Work: IV Bolus Started (Caron Elkins RN) Comfort Measures: Breathing/Relaxation; Coaching; Back Rub Given; Family Support (Caron Elkins RN) Procedure Verify: Correct Patient Identity; Correct Side and Site are Marked; Accurate Procedure Consent Form; Agreement on Procedure to be Done; Addressed Need to Administer Antibiotics or Fluids for Irrigation; Safety Precautions Based on Patient History or Medication Use (Caron Elkins RN) Anesthesia Plans: Epidural (Caron Vitrano, RN) LaborFlag: OB Triage (QS system process) Datetime: 12/19/2016 18:17 NBP Sys/Lona/Mean (mmHg): 159 (QS system process) : 85 (QS system process) : 115 (QS system process) Pulse: 88 (QS system process) Respirations: 17 (Caron Vitrano, RN) LaborFlag: OB Triage (QS system process) Datetime: 12/19/2016 18:15 Monitor Mode: External (Caron Vitrano, RN) Frequency (min): 2-6 (Caron Vitrano, RN) Quality: Mild/Moderate (Caron Vitrano, RN) Duration (sec): 50-70 (Caron Vitrano, RN) Duration Criteria: Less than Two 120 Second Contractions (Caron Vitrano, RN) Pattern: Normal: <= 5 Contractions in 10 Minutes (Caron Vitrano, RN) Resting Tone (Palpate): Relaxed (Caron Vitrano, RN) Monitor Mode: External US (Caron Vitrano, RN) FHR Baseline Rate : 125 (Caron Vitrano, RN) Variability: Moderate 6-25 bpm (Caron Vitrano, RN) Accelerations: None (Caron Vitrano, RN) Decelerations: None (Caron Vitrano, RN) Pitocin (milliunit): Pitocin Remains (milliunits) @ 12 (Caron Vitrano, RN) Datetime: 12/19/2016 18:00 Monitor Mode: External; Palpation (Caron Vitrano, RN) Frequency (min): 3-5 (Caron Vitrano, RN) Quality: Mild/Moderate (Caron Vitrano, RN) Duration (sec): 50-90 (Caron Vitrano, RN) Duration Criteria: Less than Two 120 Second Contractions (Caron Vitrano, RN) Pattern: Normal: <= 5 Contractions in 10 Minutes (Caron Vitrano, RN) Resting Tone (Palpate): Relaxed (Caron Vitrano, RN) Monitor Mode: External US (Caron Vitrano, RN) FHR Baseline Rate : 125 (Caron Vitrano, RN) Variability: Moderate 6-25 bpm (Caron Vitrano, RN) Accelerations: None (Caron Vitrano, RN) Decelerations: None (Caron Vitrano, RN) Pitocin (milliunit): Pitocin Remains (milliunits) @ 12 (Caron Vitrano, RN)
--- NOTE | 2016-12-19 22:00 | L&D Flow Sheet ---
LD Flowsheet Datetime Report Generated by CPN: 12/19/2016 22:00 Datetime: 12/19/2016 21:52 NBP Sys/Lona/Mean (mmHg): 151 (QS system process) : 82 (QS system process) : 111 (QS system process) Pulse: 96 (QS system process) LaborFlag: OB Triage (QS system process) Datetime: 12/19/2016 21:37 NBP Sys/Lona/Mean (mmHg): 149 (QS system process) : 88 (QS system process) : 106 (QS system process) Pulse: 99 (QS system process) LaborFlag: OB Triage (QS system process) Datetime: 12/19/2016 21:25 Monitor Interventions for UA: [place] Adjusted (Caron Elkins RN) Monitor Interventions for FHR: Ultrasound Adjusted (Caron Elkins RN) Patient Position/Activity: Left Lateral (Caron Elkins RN) Datetime: 12/19/2016 21:22 NBP Sys/Lona/Mean (mmHg): 125 (QS system process) : 64 (QS system process) : 86 (QS system process) Pulse: 100 (QS system process) Respirations: 16 (Caron Elkins RN) Dilatation (cm): 4.5 (Caron Elkins RN) Effacement (%): 90 (Caron Elkins RN) Station: -1 (Caron Elkins RN) Exam by: Erica Elkins RN (Caron Elkins RN) LaborFlag: OB Triage (QS system process) Datetime: 12/19/2016 21:15 Monitor Mode: External; Palpation (Caron Vitrano, RN) Frequency (min): 1-4 (Caron Vitrano, RN) Quality: Mild/Moderate (Caron Vitrano, RN) Duration (sec): 60-90 (Caron Vitrano, RN) Duration Criteria: Less than Two 120 Second Contractions (Caron Vitrano, RN) Pattern: Normal: <= 5 Contractions in 10 Minutes (Caron Vitrano, RN) Resting Tone (Palpate): Relaxed (Caron Vitrano, RN) Monitor Mode: External US (Caron Vitrano, RN) FHR Baseline Rate : 150 (Caron Vitrano, RN) Variability: Moderate 6-25 bpm (Caron Vitrano, RN) Accelerations: 15X15 (Caron Vitrano, RN) Decelerations: None (Caorn Vitrano, RN) Pitocin (milliunit): Pitocin Remains (milliunits) @ 14 (Caron Vitrano, RN) Datetime: 12/19/2016 21:07 NBP Sys/Lona/Mean (mmHg): 127 (QS system process) : 63 (QS system process) : 89 (QS system process) Pulse: 91 (QS system process) Respirations: 16 (Caron Vitrano, RN) LaborFlag: OB Triage (QS system process) Datetime: 12/19/2016 21:00 Monitor Mode: External; Palpation (Caron Vitrano, RN) Frequency (min): 1-3 (Caron Vitrano, RN) Quality: Mild/Moderate (Caron Vitrano, RN) Duration (sec): 50-80 (Caron Vitrano, RN) Duration Criteria: Less than Two 120 Second Contractions (Caron Vitrano, RN) Pattern: Normal: <= 5 Contractions in 10 Minutes (Caron Vitrano, RN) Resting Tone (Palpate): Relaxed (Caron Vitrano, RN) Monitor Mode: External US (Caron Vitrano, RN) FHR Baseline Rate : 150 (Caron Vitrano, RN) Variability: Moderate 6-25 bpm (Caron Vitrano, RN) Accelerations: None (Caron Vitrano, RN) Decelerations: Variable (Caron Vitrano, RN) Pitocin (milliunit): Pitocin Remains (milliunits) @ 14 (Caron Vitrano, RN) Datetime: 12/19/2016 20:54 NBP Sys/Lona/Mean (mmHg): 126 (QS system process) : 61 (QS system process) : 88 (QS system process) Pulse: 89 (QS system process) Respirations: 16 (Caron Vitrano, RN) LaborFlag: OB Triage (QS system process) Datetime: 12/19/2016 20:51 Temperature (F): 97.9 (Caron Vitrano, RN) Temperature (C): 36.6 (QS system process) Temperature Route: Oral (Caron Vitrano, RN) LaborFlag: OB Triage (QS system process) Datetime: 12/19/2016 20:49 Monitor Interventions for UA: [place] Adjusted (Caron Vitrano, RN) Monitor Interventions for FHR: Ultrasound Adjusted (Caron Vitrano, RN) Patient Position/Activity: Right Lateral (Caron Vitrano, RN) Datetime: 12/19/2016 20:45 Monitor Mode: External (Caron Vitrano, RN) Frequency (min): 1-3 (Caron Vitrano, RN) Quality: Mild/Moderate (Caron Vitrano, RN) Duration (sec): 50-90 (Caron Vitrano, RN) Duration Criteria: Less than Two 120 Second Contractions (Caron Vitrano, RN) Pattern: Normal: <= 5 Contractions in 10 Minutes (Caron Vitrano, RN) Resting Tone (Palpate): Relaxed (Caron Vitrano, RN) Monitor Mode: External US (Caron Vitrano, RN) FHR Baseline Rate : 145 (Caron Vitrano, RN) Variability: Moderate 6-25 bpm (Caron Vitrano, RN) Accelerations: None (Caron Vitrano, RN) Decelerations: None (Caron Vitrano, RN) Pitocin (milliunit): Pitocin Remains (milliunits) @ 14 (Caron Vitrano, RN) Datetime: 12/19/2016 20:40 Patient Position/Activity: Left Tilt; Semi-Fowlers (Caron Vitrano, RN) Datetime: 12/19/2016 20:37 NBP Sys/Lona/Mean (mmHg): 140 (QS system process) : 74 (QS system process) : 101 (QS system process) Pulse: 86 (QS system process) Respirations: 16 (Caron Vitrano, RN) LaborFlag: OB Triage (QS system process) Datetime: 12/19/2016 20:30 Monitor Mode: External (Caron Vitrano, RN) Frequency (min): 1-4 (Caron Vitrano, RN) Quality: Mild/Moderate (Caron Vitrano, RN) Duration (sec): 50-70 (Caron Vitrano, RN) Duration Criteria: Less than Two 120 Second Contractions (Caron Vitrano, RN) Pattern: Normal: <= 5 Contractions in 10 Minutes (Caron Vitrano, RN) Resting Tone (Palpate): Relaxed (Caron Vitrano, RN) Monitor Mode: External US (Caron Vitrano, RN) FHR Baseline Rate : 135 (Caron Vitrano, RN) Variability: Moderate 6-25 bpm (Caron Vitrano, RN) Accelerations: 15X15 (Caron Vitrano, RN) Decelerations: None (Caron Vitrano, RN) Pitocin (milliunit): Pitocin Remains (milliunits) @ 14 (Caron Vitrano, RN) Datetime: 12/19/2016 20:22 NBP Sys/Lona/Mean (mmHg): 159 (QS system process) : 106 (QS system process) : 126 (QS system process) Pulse: 86 (QS system process) Respirations: 16 (Caron Vitrano, RN) LaborFlag: OB Triage (QS system process) Datetime: 12/19/2016 20:17 Monitor Interventions for UA: [place] Adjusted (Caron Vitrano, RN) Datetime: 12/19/2016 20:15 Monitor Mode: External (Caron Vitrano, RN) Frequency (min): 1-3 (Caron Vitrano, RN) Quality: Mild/Moderate (Caron Vitrano, RN) Duration (sec): 50-60 (Caron Vitrano, RN) Duration Criteria: Less than Two 120 Second Contractions (Caron Vitrano, RN) Pattern: Normal: <= 5 Contractions in 10 Minutes (Caron Vitrano, RN) Resting Tone (Palpate): Relaxed (Caron Vitrano, RN) Monitor Mode: External US (Caron Vitrano, RN) FHR Baseline Rate : 135 (Caron Vitrano, RN) Variability: Moderate 6-25 bpm (Caron Vitrano, RN) Accelerations: None (Caron Vitrano, RN) Decelerations: None (Caron Vitrano, RN) Pitocin (milliunit): Pitocin Remains (milliunits) @ 14 (Caron Vitrano, RN) Datetime: 12/19/2016 20:13 Patient Position/Activity: Right Tilt; Tailors (Caron Vitrano, RN) Hygiene: Underpad Changed (Caron Vitrano, RN) Datetime: 12/19/2016 20:07 NBP Sys/Lona/Mean (mmHg): 134 (QS system process) : 60 (QS system process) : 87 (QS system process) Pulse: 88 (QS system process) Respirations: 16 (Caron Vitrano, RN) LaborFlag: OB Triage (QS system process) Datetime: 12/19/2016 20:00 Monitor Mode: External; Palpation (Caron Vitrano, RN) Frequency (min): 2-3 (Caron Vitrano, RN) Quality: Mild/Moderate (Caron Vitrano, RN) Duration (sec): 50-70 (Caron Vitrano, RN) Duration Criteria: Less than Two 120 Second Contractions (Caron Vitrano, RN) Pattern: Normal: <= 5 Contractions in 10 Minutes (Caron Vitrano, RN) Resting Tone (Palpate): Relaxed (Caron Vitrano, RN) Monitor Mode: External US (Caron Vitrano, RN) FHR Baseline Rate : 135 (Caron Vitrano, RN) Variability: Moderate 6-25 bpm (Caron Vitrano, RN) Accelerations: None (Caron Vitrano, RN) Decelerations: None (Caron Elkins RN) Pitocin (milliunit): Pitocin Remains (milliunits) @ 14 (Caron Elkins RN)
[2016-12-19] MEDS ORDERED: MISOPROSTOL 0.2 MG TABLET ONE (22:43)
[2016-12-19] MEDS ORDERED: LIDOCAINE 1% INJ-PF (10 MG/ML) 30 ML SDV ONE (22:43)
[2016-12-20] MEDS ORDERED: PROMETHAZINE HCL 25 MG SUPP.RECT PR PRN (01:35)
[2016-12-20] MEDS ORDERED: MAGNESIUM HYDROXIDE SUSP 30 ML UDCUP PO PRN (01:35)
[2016-12-20] MEDS ORDERED: ACETAMINOPHEN 650 MG SUPP.RECT PR PRN (01:35)
[2016-12-20] MEDS ORDERED: PROMETHAZINE HCL 25 MG TABLET PO PRN (01:35)
[2016-12-20] MEDS ORDERED: ZOLPIDEM TARTRATE 5 MG TABLET PO PRN (01:35)
[2016-12-20] MEDS ORDERED: DIPH/PERTUSS(ACELL)/TETANUS VAC/PF 0.5 ML SYR (>=10YO) IM PRN (01:35)
[2016-12-20] MEDS ORDERED: MEASLES,MUMPS&RUBELLA VACC/PF 0.5 ML VIAL SUBCUT PRN (01:35)
[2016-12-20] MEDS ORDERED: PSEUDOEPHEDRINE HCL 30 MG TABLET PO PRN (01:35)
[2016-12-20] MEDS ORDERED: OXYTOCIN/NORMAL SALINE 1,000 ML IV PRN (01:35)
[2016-12-20] MEDS ORDERED: DIBUCAINE 1% OINTMENT 28 GM TP PRN (01:35)
[2016-12-20] MEDS ORDERED: NA PHOS,M-B/NA PHOS,DI-BA (ADULT) 133 ML ENEMA PR PRN (01:35)
[2016-12-20] MEDS ORDERED: DIPHENHYDRAMINE HCL 25 MG CAPSULE PO PRN (01:35)
[2016-12-20] MEDS ORDERED: GLYCERIN/WITCH HAZEL LEAF 1 EACH MED..PAD TP PRN (01:35)
[2016-12-20] MEDS ORDERED: ACETAMINOPHEN WITH CODEINE #3 TABLET PO PRN (01:35)
[2016-12-20] MEDS ORDERED: BENZOCAINE/MENTHOL AEROSOL SPRAY 56 ML TOP PRN (01:35)
[2016-12-20] MEDS ORDERED: PROMETHAZINE HCL INJ 25 MG/1 ML VIAL IV PRN (01:35)
[2016-12-20] MEDS ORDERED: ACETAMINOPHEN 325 MG TABLET ONE (02:59)
[2016-12-20] MEDS ORDERED: ACETAMINOPHEN WITH CODEINE #3 TABLET ONE (03:01)
[2016-12-20] MEDS: ACETAMINOPHEN WITH CODEINE #3 TABLET PO PRN ×2 (03:04→19:41)
--- NOTE | 2016-12-20 04:41 | Admission Physical ---
Datetime Report Generated by CPN: 12/20/2016 04:41 CURRENT ADMISSION Chief Complaint: Uterine Contractions Indication for Induction- Other: SROM Admit Plan: Admit to Unit; Initiate Labor Induction Protocol ALLERGIES Medication Allergies: No Medication Allergies: No Known Allergies (12/19/2016) Medication Allergies: No Known Allergies (12/12/2016) Latex: No Latex Allergies Food Allergies: N/A Environmental Allergies: N/A OBSTETRICAL HISTORY EDC: 12/20/2016 00:00 : 1 Para: 0 Term: 0 : 0 SAB: 0 IAB: 0 Ectopic: 0 Livin Cesareans: 0 VBACs: 0 Multiple Births: 0 Gestational Diabetes: No Rh Sensitization: No Incompetent Cervix: No PEDRO: No Infertility: No ART Treatment: No Uterine Anomaly: No IUGR: No Hx Previous C/S: No Macrosomia: No Hx Loss/Stillborn: No PIH: No Hx : No Placenta Previa/Abruption: No Depression/PP Depression: No PTL/PROM: No Post Hemorrhage: No Current Procedures: None SEE RECORDS Alcohol: No Marijuana : No Cocaine: No Other Illicit Drugs: No Cigarettes: Former Smoker. [id number] MEDICAL HISTORY Diabetes: No Blood Transfusion: No Pulmonary Disease (Asthma, TB): Yes Breast Disease: No Hypertension: No Shipfitter Surgery: No Heart Disease: No Hosp/Surgery: No Autoimmune Disorder: No Anesthetic Complications: No Kidney Disease: No Abnormal Pap Smear: No Neuro/Epilepsy: No Psychiatric Disorders: No Other Medical Diseases: No Hepatitis/Liver Disease: No Significant Family History: No Varicosities/Phlebitis: No Trauma/Violence : No Thyroid Dysfunction: No Medical History Comments: Asthma: Albuterol PRN; Unknown last use Surgery: L knee surgery 2002 INFECTIOUS HISTORY Gonorrhea: No Genital Herpes: No Chlamydia: No Tuberculosis: No Syphilis: No Hepatitis: No HIV/AIDS Exposure: No Rash or Viral Illness: No HPV: No PHYSICAL EXAM General: Normal HEENT: Normal Neurologic: Normal Thyroid: Normal Heart: Normal Lungs: Normal Breast: Deferred Back: Normal Abdomen: Normal Genitourinary Exam: Normal Extremities: Normal DTRs: Normal Pelvic Type: Adequate Vital Signs: Reviewed VAGINAL EXAM Dilatation: 1 Effacement: 30 Station: -2 MEMBRANES Membranes: Ruptured FETUS A EGA: 39.6 Monitoring: External US FHR- Baseline: 140 Variability: Moderate 6-25bpm FHR Category: Category I Presentation: Vertex Admit Comment: efw 8 lbs PLANS FOR LABOR AND DELIVERY Labor and Delivery: None Pain Management: Epidural Feeding Preference: Breast Benefit of Breast Feed Discussed: Yes Circumcision: Yes INFORMED CONSENT Signature: with User ID: [email or web address]
[2016-12-20] MEDS: IBUPROFEN 800 MG TABLET PO SCH ×3 (06:16→21:07)
--- NOTE | 2016-12-20 07:01 | L&D Flow Sheet ---
LD Flowsheet Datetime Report Generated by CPN: 12/20/2016 07:00 Datetime: 12/20/2016 04:44 Temperature (F): 99.8 (Mary Hiren, RN) Temperature (C): 37.7 (QS system process) Temperature Route: Axillary (Mary Hiren, RN) Datetime: 12/20/2016 04:30 Stage of : Recovery (Mary Hiren, RN) Pain Scale: 1 (Mary Hiren, RN) Pain Presence: Constant (Mary Hiren, RN) Pain Type: Ache (Mary Hiren, RN) Pain Location: Perineum (Mary Hiren, RN) Datetime: 12/20/2016 04:22 NBP Sys/Lona/Mean (mmHg): 138 (QS system process) : 70 (QS system process) : 98 (QS system process) Pulse: 101 (QS system process) Datetime: 12/20/2016 04:15 Stage of : Recovery (Mary Hiren, RN) Pain Scale: 1 (Mary Hirne, RN) Pain Presence: Constant (Mary Hiren, RN) Pain Type: Ache (Mary Hiren, RN) Pain Location: Perineum (Mary Hiren, RN) Datetime: 12/20/2016 04:07 NBP Sys/Lona/Mean (mmHg): 140 (QS system process) : 69 (QS system process) : 94 (QS system process) Pulse: 102 (QS system process) Datetime: 12/20/2016 04:00 Stage of : Recovery (Mary Hiren, RN) Pain Scale: 1 (Mary Hiren, RN) Pain Presence: Constant (Mary Hiren, RN) Pain Type: Ache (Mary Hiren, RN) Pain Location: Perineum (Mary Hiren, RN) Datetime: 12/20/2016 03:52 NBP Sys/Lona/Mean (mmHg): 140 (QS system process) : 79 (QS system process) : 101 (QS system process) Pulse: 96 (QS system process) Datetime: 12/20/2016 03:45 Stage of : Recovery (Mary Hiren, RN) Pain Scale: 1 (Mary Ihren, RN) Pain Presence: Constant (Mary Hiren, RN) Pain Type: Ache (Mary Hiren, RN) Pain Location: Perineum (Mary Hiren, RN) Datetime: 12/20/2016 03:30 Stage of : Recovery (Mary Hiren, RN) Pain Scale: 1 (Mary Hiren, RN) Pain Presence: Constant (Mary Hiren, RN) Pain Type: Ache (Mary Hiren, RN) Pain Location: Perineum (Mary Hiren, RN) Datetime: 12/20/2016 03:22 NBP Sys/Lona/Mean (mmHg): 131 (QS system process) : 73 (QS system process) : 96 (QS system process) Pulse: 111 (QS system process) Datetime: 12/20/2016 03:15 Stage of : Recovery (Mary Hiren, RN) Pain Scale: 2 (Mary Hiren, RN) Pain Presence: Constant (Mary Hiren, RN) Pain Type: Ache (Mary Hiren, RN) Pain Location: Perineum (Mary Hiren, RN) Datetime: 12/20/2016 03:07 NBP Sys/Lona/Mean (mmHg): 125 (QS system process) : 73 (QS system process) : 93 (QS system process) Pulse: 112 (QS system process) Datetime: 12/20/2016 03:00 Stage of : Recovery (Mary Hiren, RN) Pain Scale: 3 (Mary Hiren, RN) Pain Presence: Constant (Mary Hiren, RN) Pain Type: Ache (Mary Hiren, RN) Pain Location: Perineum (Mary Hiren, RN) Datetime: 12/20/2016 02:53 NBP Sys/Lona/Mean (mmHg): 163 (QS system process) : 76 (QS system process) : 109 (QS system process) Pulse: 120 (QS system process) Datetime: 12/20/2016 02:44 Stage of : Recovery (Mary Maradiaga, RN) Temperature (F): 99.8 (Mary Foxco, RN) Temperature (C): 37.7 (QS system process) Temperature Route: Axillary (Mary Maradiaga, RN) Pain Scale: 3 (Mary Hiren, RN) Pain Presence: Constant (Mary Hiren, RN) Pain Type: Ache (Mary Hiren, RN) Pain Location: Perineum (Mary Foxco, RN) Stage 2 Comments: Delivery of intact placenta in gallardo position with three vessel cord (Ruba Liao, RN) Datetime: 12/20/2016 02:39 Stage 2 Comments: cord blood obtained (Ruba Liao, ) Datetime: 12/20/2016 02:38 Stage 2 Comments: Delivery of viable male via (Ruba Liao, RN) Datetime: 12/20/2016 02:30 Pitocin (milliunit): Pitocin Remains (milliunits) @ (Annotations: 18) (Mary Hiren, RN) Datetime: 12/20/2016 02:26 Comments: Nursery RN at bedside for delivery (Radha Ring, RN) Pushing: Coached on Pushing; Urge to Push (Radha Ring, RN) Pushing Position: Pushing with Contractions; Pushing Lithotomy (Radha Ring, RN) Pushing Progress: with Pushing (Radha Ring, RN) Datetime: 12/20/2016 02:24 Stage 2 Comments: Nursery notified of request for presence at delivery (Ruba Marinasmann, RN) Datetime: 12/20/2016 02:23 Communication: Provider at Bedside (Radha Ring, RN) Communication Comments: bed broken down in preperation for delivery (Radha Ring, RN) Datetime: 12/20/2016 02:16 Pushing: Coached on Pushing; Urge to Push (Radha Ring, RN) Pushing Position: Pushing with Contractions; Pushing Lithotomy (Radha Ring, RN) Pushing Progress: Presenting Part Visible; Pushing Effectively with Contractions (Radha Ring, RN) Datetime: 12/20/2016 02:15 Monitor Mode: External; Palpation (Ruba Liao RN) Frequency (min): 1.5-3 (Ruba Liao RN) Quality: Moderate to Strong (Ruba Liao RN) Duration (sec): 30-40 (Ruba Liao RN) Resting Tone (Palpate): Relaxed (Ruba Liao RN) Monitor Mode: External US (Ruba Liao RN) FHR Baseline Rate : 140 (Ruba Liao RN) Variability: Moderate 6-25 bpm (Ruba Liao RN) Accelerations: 15X15 (Ruba Liao RN) Decelerations: Variable (Ruba Liao RN) Comments: DOMINIQUE Maradiaga at bedside evaluating tracing and performing interventions as necessary (Ruba Liao RN) Pitocin (milliunit): Pitocin Remains (milliunits) @ (Annotations: 18) (Mary Maradiaga RN) Datetime: 12/20/2016 02:03 Actions for Decelerations: Oxygen Applied; IV Bolus (Radha Ring, DOMINIQUE) Oxygen Method: Non-Rebreather (Radha Ring, RN) Datetime: 12/20/2016 02:01 Monitor Mode: External; Palpation (Ruba Liao, DOMINIQUE) Frequency (min): 2.5-4 (Ruba Liao RN) Quality: Moderate to Strong (Ruba Liao RN) Duration (sec): 30-50 (Ruba Liao, RN) Resting Tone (Palpate): Relaxed (Ruba Liao, DOMINIQUE) Monitor Mode: External US (Ruba Liao RN) Comments: Unable to determine baseline due to wandering baseline. RN Hiren at bedside evaluating tracing and performing interventions as necessary (Ruba Liao, DOMINIQUE) Pushing: Coached on Pushing; Urge to Push (Radha Ring, RN) Pushing Position: Pushing with Contractions; Pushing Lithotomy (Radha Ring, RN) Pushing Progress: Pushing Effectively with Contractions (Radha Ring, RN) Datetime: 12/20/2016 02:00 Pitocin (milliunit): Pitocin Remains (milliunits) @ (Annotations: 18) (Mary Maradiaga RN) Datetime: 12/20/2016 01:52 Monitor Interventions for UA: [place] Adjusted (Radha Ring, RN) Datetime: 12/20/2016 01:45 Monitor Mode: External; Palpation (Ruba Liao RN) Frequency (min): 1.5-3 (Ruba Liao RN) Quality: Moderate (Ruba Liao RN) Duration (sec): 30-50 (Ruba Liao RN) Resting Tone (Palpate): Relaxed (Ruba Liao RN) Monitor Mode: External US (Ruba Liao RN) FHR Baseline Rate : 145 (Ruba Liao RN) Variability: Moderate 6-25 bpm (Ruba Liao RN) Accelerations: 15X15 (Ruba Liao, DOMINIQUE) Decelerations: None (Ruba Liao, DOMINIQUE) Comments: RN Hiren at bedside evaluating tracing and performing interventions as necessary (Ruba Liao RN) Datetime: 12/20/2016 01:44 Pitocin (milliunit): Pitocin Increased to (milliunits) @ 18 (Radha Ring, RN) Datetime: 12/20/2016 01:38 Pulse: 105 (QS system process) SpO2 (%): 84 (QS system process) LaborFlag: OB Triage (QS system process) Datetime: 12/20/2016 01:37 NBP Sys/Lona/Mean (mmHg): 134 (QS system process) : 64 (QS system process) : 92 (QS system process) Pulse: 101 (QS system process) LaborFlag: OB Triage (QS system process) Datetime: 12/20/2016 01:36 Pitocin (milliunit): Pitocin Remains (milliunits) @ (Annotations: 16) (Mary Rocco, ) Datetime: 12/20/2016 01:33 Pulse: 107 (QS system process) Pulse: 105 (QS system process) SpO2 (%): 88 (QS system process) SpO2 (%): 98 (QS system process) LaborFlag: OB Triage (QS system process) Datetime: 12/20/2016 01:30 Monitor Mode: External; Palpation (Ruba Liao RN) Frequency (min): 1-2.5 (Ruba Liao RN) Quality: Moderate (Ruba Liao RN) Duration (sec): 30-50 (Ruba Liao RN) Resting Tone (Palpate): Relaxed (Ruba Liao RN) Monitor Mode: External US (Ruba Liao RN) Comments: unable to determine due to wandering baseline. questionable variable decelerations. RN Hiren at bedside evaluating tracing and performing interventions as necessary (Ruba Liao RN) Datetime: 12/20/2016 01:28 Pushing: Coached on Pushing; Urge to Push (Radha Ring, RN) Pushing Position: Pushing with Contractions; Pushing Left Side (Radha Ring, RN) Datetime: 12/20/2016 01:25 Patient Care Comments: Ice pack provided to head (Radha Ring, RN) Datetime: 12/20/2016 01:22 Actions for Decelerations: Oxygen Applied (Radha Ring, RN) Patient Position/Activity: Right Tilt (Radha Ring, RN) Datetime: 12/20/2016 01:21 Pitocin (milliunit): Pitocin Remains (milliunits) @ (Annotations: 16) (Mary Hiren, RN) Datetime: 12/20/2016 01:15 Monitor Mode: External; Palpation (Ruba Liao RN) Frequency (min): 1-4 (Ruba Liao RN) Quality: Moderate (Rbua Liao RN) Duration (sec): 40-50 (Ruba Liao RN) Resting Tone (Palpate): Relaxed (Ruba Liao RN) Monitor Mode: External US (Ruba Liao RN) FHR Baseline Rate : 140 (Ruba Liao RN) Variability: Moderate 6-25 bpm (Ruba Liao RN) Accelerations: 10X10 (Ruba Liao RN) Decelerations: Late; Variable (Ruba Liao RN) Comments: RN Hiren at bedside evaluating tracing and performing interventions as necessary (Ruba Liao RN) Datetime: 12/20/2016 01:06 Pitocin (milliunit): Pitocin Increased to (milliunits) @ 16 (Radha Ring, RN) Datetime: 12/20/2016 01:03 Pushing: Coached on Pushing; Urge to Push (Radha Ring, RN) Pushing Position: Pushing with Contractions; Pushing Lithotomy (Radha Ring, RN) Datetime: 12/20/2016 01:02 I/O Interventions: Perkins Discontinued (Radha Franco, RN) Datetime: 12/20/2016 01:00 Monitor Mode: External; Palpation (Ruba Liao RN) Frequency (min): 2-4 (Ruba Liao RN) Quality: Moderate (Ruba Liao RN) Duration (sec): 30-70 (Ruba Liao RN) Resting Tone (Palpate): Relaxed (Ruba Liao RN) Contraction Comments: difficult to determine with toco, palpation utilized in association (Ruba Liao RN) Monitor Mode: External US (Ruba Liao RN) FHR Baseline Rate : 140 (Ruba Liao RN) Variability: Moderate 6-25 bpm (Ruba Liao RN) Accelerations: 15X15 (Ruba Liao RN) Decelerations: None (Ruba Liao RN) Comments: tracing broken, no decelerations noted during what tracing is present (Ruba Liao RN) Pitocin (milliunit): Pitocin Remains (milliunits) @ (Annotations: 14) (Mary Hiren, RN) Datetime: 12/20/2016 00:58 Pushing: Coached on Pushing; Urge to Push (Radha Ring, RN) Pushing Position: Pushing with Contractions; Pushing Lithotomy (Radha Ring, RN) Datetime: 12/20/2016 00:55 Dilatation (cm): 10.0 (Mary Maradiaga RN) Effacement (%): 100 (Mary Maradiaga RN) Station: 1 (Mary Maradiaga RN) Exam by: Tamera Maradiaga RN (Mary Maradiaga, RN) Stage 2 Comments: RN to remain at bedside thorughout remainder of the second stage of labor adjusting u/s and continuously monitoring FHT (Mary Maradiaga, RN) Datetime: 12/20/2016 00:52 NBP Sys/Lona/Mean (mmHg): 174 (QS system process) : 97 (QS system process) : 129 (QS system process) Pulse: 107 (QS system process) LaborFlag: OB Triage (QS system process) Datetime: 12/20/2016 00:50 Communication Comments: Dr. Kelly called and notified of pt. SVE and pt. willingness to push. Orders received that we may begin pushing (Mary Hiren, RN) Datetime: 12/20/2016 00:48 Patient Care Comments: pt. refusing to sit up or peanut ball at this time (Mary Hiren, RN) Datetime: 12/20/2016 00:45 Monitor Mode: External; Palpation (Ruba Liao RN) Frequency (min): 1.5-3 (Ruba Liao RN) Quality: Moderate (Ruba Liao RN) Duration (sec): 30-40 (Ruba Liao RN) Resting Tone (Palpate): Relaxed (Ruba Liao RN) Contraction Comments: contractions difficult to visualize on toco, RN at bedside intermittently to palpate abdomen (Ruba Liao RN) Monitor Mode: External US (Ruba Liao RN) Variability: Moderate 6-25 bpm (Ruba Liao RN) Accelerations: None (Ruba Liao RN) Comments: difficult to determine if having decelerations due to brokeness of tracing (Ruba Liao RN) Dilatation (cm): 9.5 (Mary Maradiaga RN) Effacement (%): 100 (Mary Maradiaga RN) Station: 1 (Mary Maradiaga RN) Exam by: Tamera Maradiaga RN (Mary Maradiaga RN) Vaginal Bleeding: Normal Show (Mary Maradiaga RN) Cervix, Consistency: Soft (Mary Maradiaga RN) Cervix, Position: Anterior (Mary Maradiaga RN) Pitocin (milliunit): Pitocin Remains (milliunits) @ (Annotations: 14) (Mary Maradiaga RN) Datetime: 12/20/2016 00:42 NBP Sys/Lona/Mean (mmHg): 171 (QS system process) : 94 (QS system process) : 124 (QS system process) Pulse: 114 (QS system process) LaborFlag: OB Triage (QS system process) Datetime: 12/20/2016 00:37 NBP Sys/Lona/Mean (mmHg): 178 (QS system process) : 94 (QS system process) : 128 (QS system process) Pulse: 103 (QS system process) LaborFlag: OB Triage (QS system process) Datetime: 12/20/2016 00:30 Monitor Mode: External (Mary Hiren, RN) Frequency (min): 1.5-2 (Mary Hiren, RN) Quality: Moderate to Strong (Mary Hiren, RN) Duration (sec): 50-80 (Mary Hiren, RN) Duration Criteria: Less than Two 120 Second Contractions (Mary Hiren, RN) Pattern: Normal: <= 5 Contractions in 10 Minutes (Mary Hiren, RN) Resting Tone (Palpate): Relaxed (Mary Ihren, RN) Monitor Mode: External US (Mary Hiren, RN) FHR Baseline Rate : 145 (Mary Hiren, RN) Variability: Moderate 6-25 bpm (Mary Hiren, RN) Accelerations: None (Mary Hiren, RN) Decelerations: Early (Mary Hiren, RN) Pitocin (milliunit): Pitocin Remains (milliunits) @ 14 (Mary Hiren, RN) Datetime: 12/20/2016 00:23 NBP Sys/Lona/Mean (mmHg): 166 (QS system process) : 87 (QS system process) : 119 (QS system process) Pulse: 96 (QS system process) LaborFlag: OB Triage (QS system process) Datetime: 12/20/2016 00:15 Monitor Mode: External; Palpation (Mary Hiren, RN) Quality: Moderate to Strong (Mary Hiren, RN) Duration (sec): 40-60 (Mary Hiren, RN) Duration Criteria: Less than Two 120 Second Contractions (Mary Hiren, RN) Pattern: Normal: <= 5 Contractions in 10 Minutes (Mary Hiren, RN) Resting Tone (Palpate): Relaxed (Mary Hiren, RN) Contraction Comments: unable to determine frequency (Mary Hiren, RN) Monitor Mode: External US (Mary Hiren, RN) FHR Baseline Rate : 145 (Mary Hiren, RN) Variability: Moderate 6-25 bpm (Mary Hiren, RN) Accelerations: 15X15 (Mary Hiren, RN) Decelerations: Early (Mary Hiren, RN) Pitocin (milliunit): Pitocin Increased to (milliunits) @ (Annotations: 14) (Mary Hiren, RN) Datetime: 12/20/2016 00:13 Monitor Interventions for UA: [place] Adjusted (Mary Hiren, RN) Datetime: 12/20/2016 00:11 Monitor Interventions for UA: [place] Adjusted (Mary Hiren, RN) Datetime: 12/20/2016 00:08 Temperature (F): 98.1 (Radha Ring, RN) Temperature (C): 36.7 (QS system process) LaborFlag: OB Triage (QS system process) Datetime: 12/20/2016 00:07 NBP Sys/Lona/Mean (mmHg): 165 (QS system process) : 93 (QS system process) : 121 (QS system process) Pulse: 94 (QS system process) LaborFlag: OB Triage (QS system process) Datetime: 12/20/2016 00:05 Monitor Interventions for UA: [place] Adjusted (Radha Ring, RN) Datetime: 12/20/2016 00:01 Monitor Interventions for UA: [place] Adjusted (Radha Ring, RN) Communication: RN at Bedside (Radha Ring, RN) Datetime: 12/20/2016 00:00 Monitor Mode: External (Mary Hiren, RN) Frequency (min): 1.5-2 (Mary Hiren, RN) Quality: Moderate to Strong (Mary Hiren, RN) Duration (sec): 40-70 (Mary Hiren, RN) Duration Criteria: Less than Two 120 Second Contractions (Mary Hiren, RN) Pattern: Normal: <= 5 Contractions in 10 Minutes (Mary Hiren, RN) Resting Tone (Palpate): Relaxed (Mary Hiren, RN) Monitor Mode: External US (Mary Hiren, RN) FHR Baseline Rate : 145 (Mary Hiren, RN) Variability: Moderate 6-25 bpm (Mary Hiren, RN) Accelerations: 15X15 (Mary Hiren, RN) Decelerations: Early (Mary Hiren, RN) Pitocin (milliunit): Pitocin Remains (milliunits) @ (Annotations: 14) (Mary Hiren, RN) Datetime: 12/19/2016 23:52 NBP Sys/Lona/Mean (mmHg): 154 (QS system process) : 91 (QS system process) : 118 (QS system process) Pulse: 97 (QS system process) LaborFlag: OB Triage (QS system process) Datetime: 12/19/2016 23:45 Monitor Mode: External (Mary Hiren, RN) Frequency (min): 1.5-2.5 (Mary Hiren, RN) Quality: Moderate to Strong (Mary Hiren, RN) Duration (sec): 40-60 (Mary Hiren, RN) Duration Criteria: Less than Two 120 Second Contractions (Mary Maradiaga, RN) Pattern: Normal: <= 5 Contractions in 10 Minutes (Mary Maradiaga RN) Resting Tone (Palpate): Relaxed (Mary Maradiaga RN) Monitor Mode: External US (Mary Maradiaga, RN) Variability: Moderate 6-25 bpm (Mary Maradiaga, RN) Comments: broken tracing, unable to determine (Mary Maradiaga RN) Pitocin (milliunit): Pitocin Remains (milliunits) @ (Annotations: 14) (Mary Maradiaga RN) Antibiotics: Penicillin IV (Units) @ 2.5 milllion units units (Mary Maradiaga, RN) Datetime: 12/19/2016 23:40 Patient Care Comments: pt. refusing peanut ball (Mary Maradiaga, RN) Datetime: 12/19/2016 23:38 Dilatation (cm): 7.5 (Mary Maradiaga, RN) Effacement (%): 90 (Mary Maradiaga RN) Station: 0 (Mary Maradiaga, RN) Exam by: Tamera Maradiaga RN (Mary Hiren, RN) Datetime: 12/19/2016 23:37 NBP Sys/Lona/Mean (mmHg): 134 (QS system process) : 78 (QS system process) : 100 (QS system process) Pulse: 101 (QS system process) LaborFlag: OB Triage (QS system process) Datetime: 12/19/2016 23:30 Monitor Mode: External; Palpation (Mary Maradiaga, RN) Frequency (min): 1.5-2 (Mary Foxco, RN) Quality: Moderate to Strong (Mary Hiren, RN) Duration (sec): 40-80 (Mary Hiren, RN) Duration Criteria: Less than Two 120 Second Contractions (Mary Hiren, RN) Pattern: Normal: <= 5 Contractions in 10 Minutes (Mary Hiren, RN) Resting Tone (Palpate): Relaxed (Mary Foxco, RN) Monitor Mode: External US (Mary Maradiaga, RN) FHR Baseline Rate : 135 (Mary Hiren, RN) Variability: Moderate 6-25 bpm (Mary Hiren, RN) Accelerations: None (Mary Hiren, RN) Comments: broken tracing, unable to determine type of decel noted (Mary Hiren, RN) Pitocin (milliunit): Pitocin Remains (milliunits) @ (Annotations: 14) (Mary Hiren, RN) Datetime: 12/19/2016 23:25 Patient Care Comments: pt. states that her pain is starting to remain constant (Mary Hiren, RN) Datetime: 12/19/2016 23:23 Monitor Interventions for FHR: Ultrasound Adjusted (Mary Hiren, RN) Comments: RN at bedside adjusting U/S (Mary Hiren, RN) Datetime: 12/19/2016 23:22 NBP Sys/Lona/Mean (mmHg): 143 (QS system process) : 76 (QS system process) : 102 (QS system process) Pulse: 102 (QS system process) Monitor Interventions for UA: [place] Adjusted (Mary Hiren, RN) LaborFlag: OB Triage (QS system process) Datetime: 12/19/2016 23:15 Monitor Mode: External; Palpation (Mary Hiren, RN) Frequency (min): 1.5-2.5 (Mary Hiren, RN) Quality: Moderate to Strong (Mary Hiren, RN) Duration (sec): 40-50 (Mary Hiren, RN) Duration Criteria: Less than Two 120 Second Contractions (Mary Hiren, RN) Pattern: Normal: <= 5 Contractions in 10 Minutes (Mary Hiren, RN) Resting Tone (Palpate): Relaxed (Mary Hiren, RN) Monitor Mode: External US (Mary Hiren, RN) FHR Baseline Rate : 145 (Mary Hiren, RN) FHR Baseline Changes: No Baseline Change (Mary Hiren, RN) Variability: Moderate 6-25 bpm (Mary Hiren, RN) Accelerations: None (Mary Hiren, RN) Decelerations: Early (Mary Hiren, RN) Patient Position/Activity: Right Lateral (Mary Hiren, RN) Patient Care Comments: constant pressure applied to left hip (Mary Hiren, RN) Datetime: 12/19/2016 23:13 Monitor Interventions for FHR: Ultrasound Adjusted (Mary Hiren, RN) Comments: RN at bedside adjusting u/s and tracing FHT (Mary Hiren, RN) Datetime: 12/19/2016 23:12 Patient Care Comments: pt. refusing peanut ball (Mary Hiren, RN) Datetime: 12/19/2016 23:11 Patient Care Comments: 200 ml emptied out of perkins (Mary Hiren, RN) Datetime: 12/19/2016 23:08 Level of Consciousness: Fully Conscious (Mary Hiren, RN) DTR's/Clonus: DTRs 2+; No Clonus (Mary Hiren, RN) Headache: Denies (Mary Hiren, RN) Breath Sounds, Left: Clear and Equal (Mary Hiren, RN) Breath Sounds, Right: Clear and Equal (Mary Hiren, RN) Nausea/Vomiting: Denies (Mary Hiren, RN) RUQ Epigastric Pain: Denies (Mary Hiren, RN) Datetime: 12/19/2016 23:07 NBP Sys/Lona/Mean (mmHg): 135 (QS system process) : 65 (QS system process) : 94 (QS system process) Pulse: 96 (QS system process) Temperature (F): 98.0 (Mary Hiren, RN) Temperature (C): 36.7 (QS system process) Temperature Route: Axillary (Mary Maradiaga RN) Pain Scale: 4 (Mary Maradiaga RN) Pain Presence: None/Denies (Mary Maradiaga RN) Pain Type: Pressure (Mary Maradiaga RN) Pain Coping: Breathing Through Contractions (Mary Maradiaga RN) Pain Assessment Comments: presuure in left hip and bottom (Mary Maradiaga RN) LaborFlag: OB Triage (QS system process) Datetime: 12/19/2016 23:02 Communication Comments: Report received from Erica Elkins RN and care assumed at this time (Mary Maradiaga RN) Datetime: 12/19/2016 23:00 Monitor Mode: External; Palpation (Caron Elkins RN) Frequency (min): 1-3 (Caron Elkins RN) Quality: Moderate to Strong (Caron Elkins RN) Duration (sec): 50-70 (Caron Elkins RN) Duration Criteria: Less than Two 120 Second Contractions (Caron Elkins RN) Pattern: Normal: <= 5 Contractions in 10 Minutes (Caron Vitrano, RN) Resting Tone (Palpate): Relaxed (Caron Vitrano, RN) Monitor Mode: External US (Caron Vitrano, RN) FHR Baseline Rate : 150 (Caron Vitrano, RN) Variability: Moderate 6-25 bpm (Caron Vitrano, RN) Accelerations: 10X10 (Caron Vitrano, RN) Decelerations: None (Caron Vitrano, RN) Pitocin (milliunit): Pitocin Remains (milliunits) @ 14 (Caron Vitrano, RN) Communication Comments: Report to Tamera Maradiaga RN; care relinquished (Caron Vitrano, RN) Datetime: 12/19/2016 22:59 Monitor Interventions for UA: [place] Adjusted (Caron Vitrano, RN) Monitor Interventions for FHR: Ultrasound Adjusted (Caron Vitrano, RN) Patient Position/Activity: Left Lateral (Caron Vitrano, RN) Datetime: 12/19/2016 22:52 NBP Sys/Lona/Mean (mmHg): 152 (QS system process) : 87 (QS system process) : 114 (QS system process) Pulse: 93 (QS system process) Respirations: 16 (Caron Vitrano, RN) LaborFlag: OB Triage (QS system process) Datetime: 12/19/2016 22:45 Monitor Mode: External (Caron Vitrano, RN) Frequency (min): 2-3 (Caron Vitrano, RN) Quality: Moderate to Strong (Caron Vitrano, RN) Duration (sec): 50-90 (Caron Vitrano, RN) Duration Criteria: Less than Two 120 Second Contractions (Caron Vitrano, RN) Pattern: Normal: <= 5 Contractions in 10 Minutes (Caron Vitrano, RN) Resting Tone (Palpate): Relaxed (Caron Vitrano, RN) Monitor Mode: External US (Caron Vitrano, RN) FHR Baseline Rate : 150 (Caron Vitrano, RN) Variability: Moderate 6-25 bpm (Caron Vitrano, RN) Accelerations: 10X10 (Caron Vitrano, RN) Decelerations: Early (Caron Vitrano, RN) Pitocin (milliunit): Pitocin Remains (milliunits) @ 14 (Caron Vitrano, RN) Datetime: 12/19/2016 22:40 I/O Interventions: Ice Chips Given (Caron Vitrano, RN) Datetime: 12/19/2016 22:38 Monitor Interventions for UA: [place] Adjusted (Caron Vitrano, RN) Datetime: 12/19/2016 22:37 NBP Sys/Lona/Mean (mmHg): 145 (QS system process) : 85 (QS system process) : 110 (QS system process) Pulse: 98 (QS system process) Respirations: 16 (Caron Vitrano, RN) LaborFlag: OB Triage (QS system process) Datetime: 12/19/2016 22:36 Patient Position/Activity: Right Tilt; Tailors (Caron Vitrano, RN) Datetime: 12/19/2016 22:33 Hygiene: Underpad Changed (Caron Vitrano, RN) Datetime: 12/19/2016 22:31 Monitor Interventions for FHR: Ultrasound Adjusted (Caron Vitrano, RN) Datetime: 12/19/2016 22:30 Monitor Mode: External (Caron Vitrano, RN) Frequency (min): 2-3 (Caron Vitrano, RN) Quality: Moderate to Strong (Caron Vitrano, RN) Duration (sec): 50-90 (Caron Vitrano, RN) Duration Criteria: Less than Two 120 Second Contractions (Caron Vitrano, RN) Pattern: Normal: <= 5 Contractions in 10 Minutes (Caron Vitrano, RN) Resting Tone (Palpate): Relaxed (Caron Vitrano, RN) Monitor Mode: External US (Caron Vitrano, RN) FHR Baseline Rate : 145 (Caron Vitrano, RN) Variability: Moderate 6-25 bpm (Caron Vitrano, RN) Comments: Unable to assess accel/decel d/t broken tracing (Caron Randano, RN) Dilatation (cm): 7.0 (Caron Vitrano, RN) Effacement (%): 100 (Caron Vitrano, RN) Station: 0 (Caron Vitrano, RN) Exam by: Erica Elkins RN (Caron Vitrano, RN) Pitocin (milliunit): Pitocin Remains (milliunits) @ 14 (Caron Vitrano, RN) Datetime: 12/19/2016 22:29 Pain Assessment Comments: urge to push (Caronheydi Elkins, RN) LaborFlag: OB Triage (QS system process) Datetime: 12/19/2016 22:22 NBP Sys/Lona/Mean (mmHg): 140 (QS system process) : 81 (QS system process) : 105 (QS system process) Pulse: 106 (QS system process) Respirations: 16 (Caron Vitrano, RN) LaborFlag: OB Triage (QS system process) Datetime: 12/19/2016 22:15 Monitor Mode: External (Caron Vitrano, RN) Frequency (min): 1-3 (Caron Vitrano, RN) Quality: Moderate to Strong (Caron Vitrano, RN) Duration (sec): 50-90 (Caron Vitrano, RN) Duration Criteria: Less than Two 120 Second Contractions (Caron Vitrano, RN) Pattern: Normal: <= 5 Contractions in 10 Minutes (Caron Vitrano, RN) Resting Tone (Palpate): Relaxed (Caron Vitrano, RN) Monitor Mode: External US (Caron Vitrano, RN) FHR Baseline Rate : 140 (Caron Vitrano, RN) Variability: Moderate 6-25 bpm (Caron Vitrano, RN) Accelerations: None (Caron Vitrano, RN) Decelerations: Early; Variable (Caorn Vitrano, RN) Pitocin (milliunit): Pitocin Remains (milliunits) @ 14 (Caron Vitrano, RN) Datetime: 12/19/2016 22:08 NBP Sys/Lona/Mean (mmHg): 137 (QS system process) : 82 (QS system process) : 104 (QS system process) Pulse: 101 (QS system process) Respirations: 16 (Caron Vitrano, RN) LaborFlag: OB Triage (QS system process) Datetime: 12/19/2016 22:00 Monitor Mode: External; Palpation (Caron Vitrano, RN) Frequency (min): 1-3 (Caron Vitrano, RN) Quality: Moderate to Strong (Caron Vitrano, RN) Duration (sec): 50-90 (Caron Vitrano, RN) Duration Criteria: Less than Two 120 Second Contractions (Caron Vitrano, RN) Pattern: Normal: <= 5 Contractions in 10 Minutes (Caron Vitrano, RN) Resting Tone (Palpate): Relaxed (Caron Vitrano, RN) Monitor Mode: External US (Caron Vitrano, RN) Monitor Interventions for FHR: Ultrasound Adjusted (Caron Vitrano, RN) FHR Baseline Rate : 130 (Caron Vitrano, RN) Variability: Moderate 6-25 bpm (Caron Vitrano, RN) Accelerations: None (Caron Vitrano, RN) Decelerations: None (Caron Vitrano, RN) Pitocin (milliunit): Pitocin Remains (milliunits) @ 14 (Caron Vitrano, RN) Datetime: 12/19/2016 21:54 Patient Position/Activity: Right Lateral (Caron Vitrano, RN) Datetime: 12/19/2016 21:52 NBP Sys/Lona/Mean (mmHg): 151 (QS system process) : 82 (QS system process) : 111 (QS system process) Pulse: 96 (QS system process) Respirations: 16 (Caron Vitrano, RN) LaborFlag: OB Triage (QS system process) Datetime: 12/19/2016 21:45 Monitor Mode: External (Caron Vitrano, RN) Frequency (min): 2-3 (Caron Vitrano, RN) Quality: Moderate to Strong (Caron Vitrano, RN) Duration (sec): 50-70 (Caron Vitrano, RN) Duration Criteria: Less than Two 120 Second Contractions (Caron Vitrano, RN) Pattern: Normal: <= 5 Contractions in 10 Minutes (Caron Vitrano, RN) Resting Tone (Palpate): Relaxed (Caron Vitrano, RN) Monitor Mode: External US (Caron Vitrano, RN) FHR Baseline Rate : 140 (Caron Vitrano, RN) Variability: Moderate 6-25 bpm (Caron Vitrano, RN) Accelerations: 15X15 (Caron Vitrano, RN) Decelerations: None (Caron Vitrano, RN) Pitocin (milliunit): Pitocin Remains (milliunits) @ 14 (Caron Vitrano, RN) Datetime: 12/19/2016 21:37 NBP Sys/Lona/Mean (mmHg): 149 (QS system process) : 88 (QS system process) : 106 (QS system process) Pulse: 99 (QS system process) Respirations: 16 (Caron Vitrano, RN) LaborFlag: OB Triage (QS system process) Datetime: 12/19/2016 21:30 Monitor Mode: External; Palpation (Caron Vitrano, RN) Frequency (min): 2-4 (Caron Vitrano, RN) Quality: Moderate to Strong (Caron Vitrano, RN) Duration (sec): 50-60 (Caron Vitrano, RN) Duration Criteria: Less than Two 120 Second Contractions (Caron Vitrano, RN) Pattern: Normal: <= 5 Contractions in 10 Minutes (Caron Vitrano, RN) Resting Tone (Palpate): Relaxed (Caron Vitrano, RN) Monitor Mode: External US (Caron Vitrano, RN) FHR Baseline Rate : 140 (Caron Vitrano, RN) Variability: Moderate 6-25 bpm (Caron Vitrano, RN) Accelerations: 15X15 (Caron Vitrano, RN) Decelerations: None (Caron Vitrano, RN) Pitocin (milliunit): Pitocin Remains (milliunits) @ 14 (Caron Vitrano, RN) Datetime: 12/19/2016 21:25 Monitor Interventions for UA: [place] Adjusted (Caron Vitrano, RN) Monitor Interventions for FHR: Ultrasound Adjusted (Caron Vitrano, RN) Patient Position/Activity: Left Lateral (Caron Vitrano, RN) Datetime: 12/19/2016 21:22 NBP Sys/Lona/Mean (mmHg): 125 (QS system process) : 64 (QS system process) : 86 (QS system process) Pulse: 100 (QS system process) Respirations: 16 (Caron Severo, RN) Dilatation (cm): 4.5 (Caron Randano, RN) Effacement (%): 90 (Caron Elkins, RN) Station: -1 (Caron Elkins, RN) Exam by: Erica Elkins RN (Caron Randano, RN) LaborFlag: OB Triage (QS system process) Datetime: 12/19/2016 21:15 Monitor Mode: External; Palpation (Caron Vitrano, RN) Frequency (min): 1-4 (Caron Vitrano, RN) Quality: Mild/Moderate (Caron Vitrano, RN) Duration (sec): 60-90 (Caron Vitrano, RN) Duration Criteria: Less than Two 120 Second Contractions (Caron Vitrano, RN) Pattern: Normal: <= 5 Contractions in 10 Minutes (Caron Vitrano, RN) Resting Tone (Palpate): Relaxed (Caron Vitrano, RN) Monitor Mode: External US (Caron Vitrano, RN) FHR Baseline Rate : 150 (Caron Vitrano, RN) Variability: Moderate 6-25 bpm (Caron Vitrano, RN) Accelerations: 15X15 (Caron Vitrano, RN) Decelerations: None (Caron Vitrano, RN) Pitocin (milliunit): Pitocin Remains (milliunits) @ 14 (Caron Vitrano, RN) Datetime: 12/19/2016 21:07 NBP Sys/Lona/Mean (mmHg): 127 (QS system process) : 63 (QS system process) : 89 (QS system process) Pulse: 91 (QS system process) Respirations: 16 (Caron Vitrano, RN) LaborFlag: OB Triage (QS system process) Datetime: 12/19/2016 21:00 Monitor Mode: External; Palpation (Caron Vitrano, RN) Frequency (min): 1-3 (Caron Vitrano, RN) Quality: Mild/Moderate (Caron Vitrano, RN) Duration (sec): 50-80 (Caron Vitrano, RN) Duration Criteria: Less than Two 120 Second Contractions (Caron Vitrano, RN) Pattern: Normal: <= 5 Contractions in 10 Minutes (Caron Vitrano, RN) Resting Tone (Palpate): Relaxed (Caron Vitrano, RN) Monitor Mode: External US (Caron Vitrano, RN) FHR Baseline Rate : 150 (Caron Vitrano, RN) Variability: Moderate 6-25 bpm (Caron Vitrano, RN) Accelerations: None (Caron Vitrano, RN) Decelerations: Variable (Caron Vitrano, RN) Pitocin (milliunit): Pitocin Remains (milliunits) @ 14 (Caron Vitrano, RN) Datetime: 12/19/2016 20:54 NBP Sys/Lona/Mean (mmHg): 126 (QS system process) : 61 (QS system process) : 88 (QS system process) Pulse: 89 (QS system process) Respirations: 16 (Caron Vitrano, RN) LaborFlag: OB Triage (QS system process) Datetime: 12/19/2016 20:51 Temperature (F): 97.9 (Caron Vitrano, RN) Temperature (C): 36.6 (QS system process) Temperature Route: Oral (Caron Vitrano, RN) LaborFlag: OB Triage (QS system process) Datetime: 12/19/2016 20:49 Monitor Interventions for UA: [place] Adjusted (Caron Vitrano, RN) Monitor Interventions for FHR: Ultrasound Adjusted (Caron Vitrano, RN) Patient Position/Activity: Right Lateral (Caron Vitrano, RN) Datetime: 12/19/2016 20:45 Monitor Mode: External (Caron Vitrano, RN) Frequency (min): 1-3 (Caron Vitrano, RN) Quality: Mild/Moderate (Caron Vitrano, RN) Duration (sec): 50-90 (Caron Vitrano, RN) Duration Criteria: Less than Two 120 Second Contractions (Caron Vitrano, RN) Pattern: Normal: <= 5 Contractions in 10 Minutes (Caron Vitrano, RN) Resting Tone (Palpate): Relaxed (Caron Vitrano, RN) Monitor Mode: External US (Caron Vitrano, RN) FHR Baseline Rate : 145 (Caron Vitrano, RN) Variability: Moderate 6-25 bpm (Caron Vitrano, RN) Accelerations: None (Caron Vitrano, RN) Decelerations: None (Caron Vitrano, RN) Pitocin (milliunit): Pitocin Remains (milliunits) @ 14 (Caron Vitrano, RN) Datetime: 12/19/2016 20:40 Patient Position/Activity: Left Tilt; Semi-Fowlers (Acron Vitrano, RN) Datetime: 12/19/2016 20:37 NBP Sys/Lona/Mean (mmHg): 140 (QS system process) : 74 (QS system process) : 101 (QS system process) Pulse: 86 (QS system process) Respirations: 16 (Caron Vitrano, RN) LaborFlag: OB Triage (QS system process) Datetime: 12/19/2016 20:30 Monitor Mode: External (Caron Vitrano, RN) Frequency (min): 1-4 (Caron Vitrano, RN) Quality: Mild/Moderate (Caron Vitrano, RN) Duration (sec): 50-70 (Caron Vitrano, RN) Duration Criteria: Less than Two 120 Second Contractions (Caron Vitrano, RN) Pattern: Normal: <= 5 Contractions in 10 Minutes (Caron Vitrano, RN) Resting Tone (Palpate): Relaxed (Caron Vitrano, RN) Monitor Mode: External US (Caron Vitrano, RN) FHR Baseline Rate : 135 (Caron Vitrano, RN) Variability: Moderate 6-25 bpm (Caron Vitrano, RN) Accelerations: 15X15 (Caron Vitrano, RN) Decelerations: None (Caron Vitrano, RN) Pitocin (milliunit): Pitocin Remains (milliunits) @ 14 (Caron Vitrano, RN) Datetime: 12/19/2016 20:22 NBP Sys/Lona/Mean (mmHg): 159 (QS system process) : 106 (QS system process) : 126 (QS system process) Pulse: 86 (QS system process) Respirations: 16 (Caron Vitrano, RN) LaborFlag: OB Triage (QS system process) Datetime: 12/19/2016 20:17 Monitor Interventions for UA: [place] Adjusted (Caron Vitrano, RN) Datetime: 12/19/2016 20:15 Monitor Mode: External (Caron Vitrano, RN) Frequency (min): 1-3 (Caron Vitrano, RN) Quality: Mild/Moderate (Caron Vitrano, RN) Duration (sec): 50-60 (Caron Vitrano, RN) Duration Criteria: Less than Two 120 Second Contractions (Caron Vitrano, RN) Pattern: Normal: <= 5 Contractions in 10 Minutes (Caron Vitrano, RN) Resting Tone (Palpate): Relaxed (Caron Vitrano, RN) Monitor Mode: External US (Caron Vitrano, RN) FHR Baseline Rate : 135 (Caron Vitrano, RN) Variability: Moderate 6-25 bpm (Caron Vitrano, RN) Accelerations: None (Caron Vitrano, RN) Decelerations: None (Caron Vitrano, RN) Pitocin (milliunit): Pitocin Remains (milliunits) @ 14 (Caron Vitrano, RN) Datetime: 12/19/2016 20:13 Patient Position/Activity: Right Tilt; Tailors (Caron Vitrano, RN) Hygiene: Underpad Changed (Caron Vitrano, RN) Datetime: 12/19/2016 20:07 NBP Sys/Lona/Mean (mmHg): 134 (QS system process) : 60 (QS system process) : 87 (QS system process) Pulse: 88 (QS system process) Respirations: 16 (Caron Vitrano, RN) LaborFlag: OB Triage (QS system process) Datetime: 12/19/2016 20:00 Monitor Mode: External; Palpation (Caron Vitrano, RN) Frequency (min): 2-3 (Caron Vitrano, RN) Quality: Mild/Moderate (Caron Vitrano, RN) Duration (sec): 50-70 (Caron Vitrano, RN) Duration Criteria: Less than Two 120 Second Contractions (Caron Vitrano, RN) Pattern: Normal: <= 5 Contractions in 10 Minutes (Caron Vitrano, RN) Resting Tone (Palpate): Relaxed (Caron Vitrano, RN) Monitor Mode: External US (Caron Vitrano, RN) FHR Baseline Rate : 135 (Caron Vitrano, RN) Variability: Moderate 6-25 bpm (Caron Vitrano, RN) Accelerations: None (Caron Vitrano, RN) Decelerations: None (Caron Vitrano, RN) Pitocin (milliunit): Pitocin Remains (milliunits) @ 14 (Caron Vitrano, RN) Datetime: 12/19/2016 19:50 Antibiotics: Penicillin IV (Units) @ 2,500,000 (Caron Vitrano, RN) Datetime: 12/19/2016 19:49 NBP Sys/Lona/Mean (mmHg): 131 (QS system process) : 62 (QS system process) : 89 (QS system process) Pulse: 100 (QS system process) Respirations: 16 (Caron Vitrano, RN) LaborFlag: OB Triage (QS system process) Datetime: 12/19/2016 19:45 Monitor Mode: External; Palpation (Caron Vitrano, RN) Frequency (min): 2-4 (Caron Vitrano, RN) Quality: Mild (Caron Vitrano, RN) Duration (sec): 50-70 (Caron Vitrano, RN) Duration Criteria: Less than Two 120 Second Contractions (Caron Vitrano, RN) Pattern: Normal: <= 5 Contractions in 10 Minutes (Caron Vitrano, RN) Resting Tone (Palpate): Relaxed (Caron Vitrano, RN) Monitor Mode: External US (Caronheydi Elkins, RN) Monitor Interventions for FHR: Ultrasound Adjusted (Caron Severo, RN) FHR Baseline Rate : 135 (Caron Vitrano, RN) Variability: Moderate 6-25 bpm (Caron Vitrano, RN) Accelerations: None (Caron Vitrano, RN) Decelerations: Prolonged (Caron Vitrano, RN) Pitocin (milliunit): Pitocin Remains (milliunits) @ 14 (Caron Severo, RN) IV/Blood Work: IV Infusing per Order (Caronheydi Elkins, RN) Patient Care Comments: 125 mL/hour (Caron Severo, RN) Datetime: 12/19/2016 19:44 NBP Sys/Lona/Mean (mmHg): 129 (QS system process) : 58 (QS system process) : 84 (QS system process) Pulse: 86 (QS system process) Respirations: 16 (Caron Severo, RN) Monitor Interventions for UA: [place] Adjusted (Caron Severo, RN) LaborFlag: OB Triage (QS system process) Datetime: 12/19/2016 19:43 IV/Blood Work: New IV Bag Hung (Caron Vitrano, RN) Datetime: 12/19/2016 19:42 NBP Sys/Lona/Mean (mmHg): 138 (QS system process) : 60 (QS system process) : 86 (QS system process) Pulse: 78 (QS system process) Respirations: 16 (Caron Vitrano, RN) Monitor Interventions for UA: [place] Adjusted (Caron Vitrano, RN) LaborFlag: OB Triage (QS system process) Datetime: 12/19/2016 19:41 Medication Comments: Ephedrine 5 mg IV (Caron Vitrano, RN) Datetime: 12/19/2016 19:40 NBP Sys/Lona/Mean (mmHg): 117 (QS system process) : 59 (QS system process) : 84 (QS system process) Pulse: 82 (QS system process) Respirations: 16 (Caron Vitrano, RN) Monitor Interventions for UA: [place] Adjusted (Caron Vitrano, RN) LaborFlag: OB Triage (QS system process) Datetime: 12/19/2016 19:38 NBP Sys/Lona/Mean (mmHg): 118 (QS system process) : 58 (QS system process) : 84 (QS system process) Pulse: 83 (QS system process) Respirations: 16 (Caron Vitrano, RN) Medication Comments: Ephedrine 5 mg IV (Caron Severo RN) IV/Blood Work: IV Bolus Started (Caron Randano, RN) Patient Position/Activity: Right Lateral (Caron Randano, RN) LaborFlag: OB Triage (QS system process) Datetime: 12/19/2016 19:34 NBP Sys/Lona/Mean (mmHg): 139 (QS system process) : 79 (QS system process) : 102 (QS system process) Pulse: 77 (QS system process) Respirations: 16 (Caron Vitrano, RN) LaborFlag: OB Triage (QS system process) Datetime: 12/19/2016 19:32 Monitor Interventions for UA: [place] Adjusted (Caron Vitrano, RN) Monitor Interventions for FHR: Ultrasound Adjusted (Caron Vitrano, RN) Patient Position/Activity: Left Lateral; Peanut Ball (Caron Vitrano, RN) Datetime: 12/19/2016 19:30 Monitor Mode: External (Caron Vitrano, RN) Frequency (min): 1-3 (Caron Vitrano, RN) Quality: Mild/Moderate (Caron Vitrano, RN) Duration (sec): 50-60 (Caron Vitrano, RN) Duration Criteria: Less than Two 120 Second Contractions (Caron Vitrano, RN) Pattern: Normal: <= 5 Contractions in 10 Minutes (Caron Vitrano, RN) Resting Tone (Palpate): Relaxed (Caron Vitrano, RN) Monitor Mode: External US (Caron Vitrano, RN) FHR Baseline Rate : 130 (Caron Vitrano, RN) Variability: Moderate 6-25 bpm (Caron Vitrano, RN) Accelerations: None (Caron Vitrano, RN) Decelerations: Late (Caron Vitrano, RN) Actions for Decelerations: Side to Side (Caron Vitrano, RN) Pitocin (milliunit): Pitocin Remains (milliunits) @ 14 (Caron Vitrano, RN) Datetime: 12/19/2016 19:29 NBP Sys/Lona/Mean (mmHg): 130 (QS system process) : 71 (QS system process) : 94 (QS system process) Pulse: 67 (QS system process) Respirations: 16 (Caron Vitrano, RN) LaborFlag: OB Triage (QS system process) Datetime: 12/19/2016 19:24 NBP Sys/Lona/Mean (mmHg): 131 (QS system process) : 72 (QS system process) : 94 (QS system process) Pulse: 75 (QS system process) Respirations: 16 (Caron Vitrano, RN) LaborFlag: OB Triage (QS system process) Datetime: 12/19/2016 19:19 NBP Sys/Lona/Mean (mmHg): 124 (QS system process) : 67 (QS system process) : 91 (QS system process) Pulse: 72 (QS system process) Respirations: 16 (Caron Vitrano, RN) LaborFlag: OB Triage (QS system process) Datetime: 12/19/2016 19:15 Monitor Mode: External; Palpation (Caron Vitrano, RN) Frequency (min): 1-5 (Caron Vitrano, RN) Quality: Mild/Moderate (Caron Vitrano, RN) Duration (sec): 50-70 (Caron Vitrano, RN) Duration Criteria: Less than Two 120 Second Contractions (Caron Vitrano, RN) Pattern: Normal: <= 5 Contractions in 10 Minutes (Caron Vitrano, RN) Resting Tone (Palpate): Relaxed (Caron Vitrano, RN) Monitor Mode: External US (Caron Vitrano, RN) FHR Baseline Rate : 125 (Caron Vitrano, RN) Variability: Moderate 6-25 bpm (Caron Vitrano, RN) Accelerations: None (Caron Vitrano, RN) Decelerations: None (Caron Vitrano, RN) Pitocin (milliunit): Pitocin Remains (milliunits) @ 14 (Caron Vitrano, RN) Datetime: 12/19/2016 19:14 NBP Sys/[place]ona/Mean (mmHg): 116 (QS system process) : 55 (QS system process) : 79 (QS system process) Pulse: 78 (QS system process) Respirations: 16 (Caron Vitrano, RN) LaborFlag: OB Triage (QS system process) Datetime: 12/19/2016 19:11 IV/Blood Work: IV Infusing per Order (Caron Elkins RN) Patient Care Comments: 125 mL/hour (Caron Elkins RN) Datetime: 12/19/2016 19:10 Pitocin (milliunit): Pitocin Increased to (milliunits) @ 14 (Caron Elkins RN) Datetime: 12/19/2016 19:08 NBP Sys/Lona/Mean (mmHg): 117 (QS system process) : 52 (QS system process) : 75 (QS system process) Pulse: 75 (QS system process) Dilatation (cm): 3.0 (Caron Elkins RN) Effacement (%): 90 (Caron Elkins RN) Station: -1 (Caron Elkins RN) Exam by: Erica Elkins RN (Caron Vitrano, RN) LaborFlag: OB Triage (QS system process) Datetime: 12/19/2016 19:07 NBP Sys/Lona/Mean (mmHg): 116 (QS system process) : 52 (QS system process) : 75 (QS system process) Pulse: 76 (QS system process) Respirations: 16 (Caron Vitrano, RN) LaborFlag: OB Triage (QS system process) Datetime: 12/19/2016 19:06 NBP Sys/Lona/Mean (mmHg): 118 (QS system process) : 53 (QS system process) : 77 (QS system process) Pulse: 74 (QS system process) I/O Interventions: [place] Cath Inserted (Caron Vitrano, RN) LaborFlag: OB Triage (QS system process) Datetime: 12/19/2016 19:05 NBP Sys/Lona/Mean (mmHg): 115 (QS system process) : 52 (QS system process) : 75 (QS system process) Pulse: 81 (QS system process) LaborFlag: OB Triage (QS system process) Datetime: 12/19/2016 19:04 NBP Sys/[place]ona/Mean (mmHg): 111 (QS system process) : 51 (QS system process) : 74 (QS system process) Pulse: 76 (QS system process) Respirations: 16 (Caron Vitrano, RN) LaborFlag: OB Triage (QS system process) Datetime: 12/19/2016 19:03 NBP Sys/Lona/Mean (mmHg): 118 (QS system process) : 57 (QS system process) : 82 (QS system process) Pulse: 71 (QS system process) LaborFlag: OB Triage (QS system process) Datetime: 12/19/2016 19:02 NBP Sys/Lona/Mean (mmHg): 117 (QS system process) : 56 (QS system process) : 81 (QS system process) Pulse: 74 (QS system process) Respirations: 16 (Caron Vitrano, RN) Pain Presence: None/Denies (Caron Vitrano, RN) Pain Type: N/A (Caron Vitrano, RN) LaborFlag: OB Triage (QS system process) Datetime: 12/19/2016 19:01 NBP Sys/Lona/Mean (mmHg): 122 (QS system process) : 56 (QS system process) : 81 (QS system process) Pulse: 77 (QS system process) Monitor Interventions for UA: [place] Adjusted (Caron Randano, RN) Monitor Interventions for FHR: Ultrasound Adjusted (Caron Randano, RN) Patient Position/Activity: Right Tilt; Low Fowlers (Caron Vitrano, RN) LaborFlag: OB Triage (QS system process) Datetime: 12/19/2016 19:00 NBP Sys/Lona/Mean (mmHg): 126 (QS system process) : 72 (QS system process) : 92 (QS system process) Pulse: 88 (QS system process) Contraction Comments: UTD d/t maternal position and habitus (Caron Elkins RN) Comments: Broken tracing d/t pt position for epidural and pt habitus. RN adjusting US (Caron Elkins RN) Pitocin (milliunit): Pitocin Remains (milliunits) @ 12 (Caron Elkins RN) Anesthesia Plans: Epidural (Caron Elkins RN) Epidural Procedure Other: Pump Started (Caron Elkins RN) LaborFlag: OB Triage (QS system process)
[2016-12-20] MEDS: DOCUSATE SODIUM 100 MG CAPSULE PO SCH ×2 (09:09→17:09)
[2016-12-20] MEDS: PRENATAL VITAMIN W-O CA NO5/FE FUMARATE/FA CAPSULE PO SCH (09:09)
[2016-12-20] MEDS: SENNOSIDES/DOCUSATE 8.6-50 MG 1 EACH TABLET PO SCH (09:09)
[2016-12-20] MEDS: FAMOTIDINE 20 MG TABLET PO SCH ×2 (09:10→21:08)
[2016-12-20] MEDS: FERROUS SULFATE 325 MG TABLET PO SCH ×2 (09:10→17:09)
--- NOTE | 2016-12-20 10:22 | PDOC PROGRESS REPORT ---
Subjective-OB Subjective: Post Delivery Day: 31 year old. Denies any needs at this time Doing well, holding baby, no c/o, breast feeding Physical Exam (OB) Vital Signs: Temp Pulse Resp BP Pulse Ox 98.6 F 73 16 138/63 H 100 12/20/16 07:50 12/20/16 07:50 12/20/16 07:50 12/20/16 07:50 12/20/16 07:50 Intake & Output 12/19/16 12/20/16 12/21/16 06:59 06:59 07:59 Intake Total 500 Balance 500 Weight 114.55 kg - PIH/Pre-Eclampsia DTR's: 2 + Clonus: Negative Headache: Absent Epigastric Pain: No Visual Changes: No - Lochia Lochia Amount: Scant < 10 ml Lochia Color: Rubra/Red - Abdomen Description: Tender, Soft Hernia Present: No Fundal Description: Firm, Midline Fundal Height: u/u - u/2 Objective-Diagnostic Laboratory: 12/19/16 14:34 12/19/16 14:34 12/19/16 12/19/16 12/19/16 13:58 14:34 14:34 WBC 10.4 RBC 3.90 Hgb 11.1 L Hct 33.5 L MCV 86 MCH 28.4 MCHC 33.2 RDW 15.4 H Plt Count 185 Seg Neutrophils % 67.9 Lymphocytes % 23.4 Monocytes % 8.0 Eosinophils % 0.2 Basophils % 0.5 Absolute Neutrophils 7.1 Absolute Lymphocytes 2.4 Absolute Monocytes 0.8 Absolute Eosinophils 0.0 Absolute Basophils 0.1 Sodium 135.8 L Potassium 4.4 Chloride 107 Carbon Dioxide 20 L Anion Gap 9 BUN 11 Creatinine 0.62 Est GFR ( Amer) > 60 Est GFR (Non-Af Amer) > 60 Glucose 102 Uric Acid 5.4 Calcium 9.3 Total Bilirubin 0.4 AST 21 ALT 38 Alkaline Phosphatase 140 H Total Protein 6.3 Albumin 3.2 L Urine Color YELLOW Urine Appearance SLIGHTLY-CLOUDY Urine pH 6.0 Ur Specific [place] 1.024 Urine Protein 30 H Urine Glucose (UA) NEGATIVE Urine Ketones NEGATIVE Urine Blood MODERATE H Urine Nitrite NEGATIVE Ur Leukocyte Esterase NEGATIVE Blood Type Antibody Screen 12/19/16 14:34 WBC RBC Hgb Hct MCV MCH MCHC RDW Plt Count Seg Neutrophils % Lymphocytes % Monocytes % Eosinophils % Basophils % Absolute Neutrophils Absolute Lymphocytes Absolute Monocytes Absolute Eosinophils Absolute Basophils Sodium Potassium Chloride Carbon Dioxide Anion Gap BUN Creatinine Est GFR ( Amer) Est GFR (Non-Af Amer) Glucose Uric Acid Calcium Total Bilirubin AST ALT Alkaline Phosphatase Total Protein Albumin Urine Color Urine Appearance Urine pH Ur Specific [place] Urine Protein Urine Glucose (UA) Urine Ketones Urine Blood Urine Nitrite Ur Leukocyte Esterase Blood Type A POSITIVE Antibody Screen NEGATIVE Assessment and Plan(PN) - Assessment and Plan (1) Vaginal delivery Is this a current diagnosis for this admission?: Yes - Time Spent with Patient Time with patient: Less than 15 minutes Medications reviewed and adjusted accordingly: Yes - Disposition Anticipated Discharge: Home Within: within 24 hours
--- NOTE | 2016-12-20 18:01 | L&D General Admission ---
General Admit Datetime Report Generated by CPN: 12/20/2016 18:00 INFORMATION Patient Age: 31 (12/05/2016 16:34:QS system process) EDC: 12/20/2016 00:00 (12/12/2016 16:56:Sarah Rasheed RN) : 1 (12/12/2016 16:56:Caron Elkins RN) Para: 0 (12/12/2016 16:56:Caron Elkins RN) Term: 0 (12/12/2016 16:56:Caron Elkins RN) : 0 (12/12/2016 16:56:Caron Elkins RN) Spontaneous Abortions: 0 (12/12/2016 16:56:Caron Elkins RN) Induced Abortions: 0 (12/12/2016 16:56:Caron Elkins RN) Livin (12/12/2016 16:56:Caron Elkins RN) Cesareans: 0 (12/12/2016 16:56:Caron Elkins RN) VBACs: 0 (12/12/2016 16:56:Caron Elkins RN) Ectopic: 0 (12/12/2016 16:56:Caron Elkins RN) Multiple Births: 0 (12/12/2016 16:56:Caron Elkins RN) Baby, Number in Womb: 1 (12/12/2016 16:56:Caron Elkins RN) CARE Primary Custom Protection Officer: [facility] (12/12/2016 16:56:Caron Elkins RN) Month of 1st Visit: 06/2016 (12/12/2016 16:56:Caron Elkins RN) Adequate Care: Yes (Annotations: Data stored by N on behalf of user) (12/12/2016 16:56:Caron Elkins RN) Prepregnancy Weight (lb): 210 (12/12/2016 16:56:Caron Elkins RN) Prepregnancy Weight (kg): 95.5 (12/12/2016 16:56:QS system process) Height (in): 63 (12/20/2016 04:40:QS system process) ALLERGIES Medication Allergy: No (12/12/2016 16:56:Caron Severo RN) Medication Allergies: No Known Allergies (12/19/2016) (12/19/2016 14:38:QS system process) Latex Allergy: No Latex Allergies (12/12/2016 16:56:Carno Vitrano, RN) Food Allergies: N/A (12/12/2016 16:56:Caron Randano RN) Environmental Allergies: N/A (12/12/2016 16:56:Caron Vitrano, RN) COMMUNICATION Primary Language: Angolan (12/12/2016 16:56:Caron Elkins RN) Medical Tx Preferred Language: Angolan (12/12/2016 16:56:Caronheydi Elkins RN) Communication Barrier(s): None (12/12/2016 16:56:Caron Vitrano, RN) DEMOGRAPHICS Address: [address] [place] [id number] (12/05/2016 16:34:QS system process) Zipcode: [address] (12/05/2016 16:34:QS system process) Home (12/05/2016 16:34:QS system process) SSN: [id number] (12/05/2016 16:34:QS system process) Next of Kin Name: INGRID BAILEY (12/05/2016 16:34:QS system process) Next of Kin (12/05/2016 16:34:QS system process) Next of Kin Relationship: SPO (12/05/2016 16:34:QS system process) Date of : 1985 (12/05/2016 16:34:QS system process) Marital Status: (12/05/2016 16:34:QS system process) Sex: Female (12/05/2016 16:34:QS system process) Race: (12/05/2016 16:34:QS system process) Ethnicity: Non- or (12/05/2016 16:34:QS system process) Adventist: Buddhist (12/05/2016 16:34:QS system process) DRUG AND ALCOHOL USE Alcohol: No (12/12/2016 16:56:Caron Elkins RN) Cigarettes: Former Smoker. [id number] (12/12/2016 16:56:Caron Elkins RN) Marijuana: No (12/12/2016 16:56:Caron Elkins RN) Cocaine: No (12/12/2016 16:56:Caron Elkins RN) Other Illicit Drugs: No (12/12/2016 16:56:Caron Elkins RN) VACCINE HISTORY Influenza Vaccine: Yes (12/12/2016 16:56:Caron Elkins RN) Pneumococcal Vaccine: No (12/12/2016 16:56:Caron Elkins RN) Tetanus Vaccine: Yes (12/12/2016 16:56:Caron Elkins RN) Tdap Vaccine: Yes (12/12/2016 16:56:Caron Elkins RN) Hepatitis B Vaccine: Yes (12/12/2016 16:56:Caron Elkins RN) Fry Cook: [facility] (12/12/2016 16:56:Caron Elkins RN) Feeding Preference: Breast (12/12/2016 16:56:Caron Elkins RN) Benefit of Breast Feed Discussed: Yes (12/12/2016 16:56:Caron Elkins RN) Circumcision: Yes (12/12/2016 16:56:Caron Elkins RN) Classes Attended: No (12/12/2016 16:56:Caron Elkins RN) Tubal Ligation: No (12/12/2016 16:56:Caron Elkins RN) Tubal Authorization Signed: N/A (12/12/2016 16:56:Caron Elkins RN) Consent Signed: N/A (12/12/2016 16:56:Caron Elkins RN) Pain Management Plans: Epidural (12/12/2016 16:56:Caron Elkins RN) Plans for Labor and Delivery: None (12/12/2016 16:56:Caron Elkins RN) Support Person: Ingrid (12/12/2016 16:56:Caron Elkins RN) Support Person Relationship: (12/12/2016 16:56:Caron Elkins RN) Cultural/Spritual Practice: [place] (12/12/2016 16:56:Caron Elkins RN) Spir/Cult Dietary Needs: No (12/12/2016 16:56:Caron Elkins RN) LIVING SITUATION/DISCHARGE PLAN Living Arrangements: House (12/12/2016 16:56:Caron Elkins RN) Adequate Access to:: Electric; Heat; Refrigeration; Plumbing/Running water; Phone; Transportation (12/12/2016 16:56:Caron Elkins RN) WIC Program: [place] (12/12/2016 16:56:Caron Elkins RN) Discharge Evaporator Person: (12/12/2016 16:56:Caron Elkins RN) Person to Help after Discharge: (12/12/2016 16:56:Caron Elkins RN) Currently Using Commun Resources: [place] (12/12/2016 16:56:Caron Elkins RN) Outside Agency/Electrical Technician Instructor: No (12/12/2016 16:56:Caron Elkins RN) Car Seat for Discharge: Yes (12/12/2016 16:56:Caron Elkins RN) Adoption Requested: No (12/12/2016 16:56:Caron Elkins RN) Pt Contact w/ Post : N/A (12/12/2016 16:56:Caron Elkins RN) LABS Blood Type: A Positive (12/12/2016 16:56:Caron Elkins RN) Antibody Screen: Negative (12/12/2016 16:56:Caron Elkins RN) Rho(G) this : Not Applicable (12/12/2016 16:56:Caron Elkins RN) Hemoglobin: 11.1 L (12/19/2016 14:34:QS system process) Hematocrit: 33.5 L (12/19/2016 14:34:QS system process) MCV: 86 (12/19/2016 14:34:QS system process) Group Beta Strep: Positive (12/12/2016 16:56:Caron Elkins RN) Gonorrhea: Negative (12/12/2016 16:56:Caron Elkins RN) Chlamydia: Negative (12/12/2016 16:56:Caron Elkins RN) RPR/VDRL: Nonreactive (12/12/2016 16:56:Caron Elkins RN) HIV Exposure Test: Negative (12/12/2016 16:56:Caron Elkins RN) Hepatitis B: Negative (12/12/2016 16:56:Caron Elkins RN) Rubella: Immune (12/12/2016 16:56:Caron Elkins RN) OB/PREVIOUS HISTORY Current Procedures: None (12/12/2016 16:56:Mary Maradiaga RN) History of Previous : No (12/12/2016 16:56:Caron Elkins RN) History of Gestational Diabetes: No (12/12/2016 16:56:Caron Elkins RN) History of PIH: No (12/12/2016 16:56:Caron Elkins RN) History of Incompetent Cervix: No (12/12/2016 16:56:Caron Elkins RN) History of Placenta Previa/Abrup: No (12/12/2016 16:56:Caron Elkins RN) History of Macrosomia: No (12/12/2016 16:56:Caron Elkins RN) History of IUGR: No (12/12/2016 16:56:Caron Elkins RN) History of Hemorrhage: No (12/12/2016 16:56:Caron Elkins RN) History of Loss/Stillborn: No (12/12/2016 16:56:Caron Elkins RN) History of : No (12/12/2016 16:56:Caron Elkins RN) History of D (Rh) Sensitization: No (12/12/2016 16:56:Caron Elkins RN) History Recurrent Loss/Stillborn: No (12/12/2016 16:56:Caron Elkins RN) History Depression/PP Depression: No (12/12/2016 16:56:Caron Elkins RN) History of Uterine Anomaly/PEDRO: No (12/12/2016 16:56:Caron Elkins RN) History of Infertility: No (12/12/2016 16:56:Caron Elkins RN) History of ART Treatment: No (12/12/2016 16:56:Caron Elkins RN) History of PEDRO: No (12/12/2016 16:56:Caron Elkins RN) MEDICAL HISTORY Med Hx Diabetes: No (12/12/2016 16:56:Caron Elkins RN) Med Hx Hypertension: No (12/12/2016 16:56:Caron Elkins RN) Med Hx Heart Disease: No (12/12/2016 16:56:Caron Elkins RN) Med Hx Autoimmune Disorder: No (12/12/2016 16:56:Caron Elkins RN) Med Hx Kidney Disease/UTI: No (12/12/2016 16:56:Caron Elkins RN) Med Hx Neurologic/Epilepsy: No (12/12/2016 16:56:Caron Elkins RN) Med Hx Psychiatric Disorders: No (12/12/2016 16:56:Caron Elkins RN) Med Hx Hepatitis/Liver Disease: No (12/12/2016 16:56:Caron Elkins RN) Med Hx Varicosities/Phlebitis: No (12/12/2016 16:56:Carno Elkins RN) Med Hx Thyroid Dysfunction: No (12/12/2016 16:56:Caron Elkins RN) Med Hx Trauma/Violence: No (12/12/2016 16:56:Caron Elkins RN) Med Hx Blood Transfusion: No (12/12/2016 16:56:Caron Elkins RN) Med Hx Pulmonary (Asthma,TB): Yes (12/12/2016 16:56:Caron Elkins RN) Med Hx Breast: No (12/12/2016 16:56:Caron Elkins RN) Med Hx TECHNICAL DEVELOPER Surgery: No (12/12/2016 16:56:Caron Elkins RN) Med Hx Hospitalization/Surgery: No (12/12/2016 16:56:Caron Elkins RN) Med Hx Anesthetic Complications: No (12/12/2016 16:56:Caron Elkins RN) Med Hx Abnormal Pap Smear: No (12/12/2016 16:56:Caron Elkins RN) Other Medical Diseases: No (12/12/2016 16:56:Caron Elkins RN) Med Hx Significant Family Hx: No (12/12/2016 16:56:Caron Elkins RN) Details of Med/Surg Hx: Asthma: Albuterol PRN; Unknown last use Surgery: L knee surgery 2002 (12/12/2016 16:56:Caron Elkins RN) INFECTIOUS HISTORY Inf Hx Gonorrhea: No (12/12/2016 16:56:Caron Elkins RN) Inf Hx Chlamydia: No (12/12/2016 16:56:Caron Eklins RN) Inf Hx Syphilis: No (12/12/2016 16:56:Caron Elkins RN) Inf Hx HIV/AIDS: No (12/12/2016 16:56:Caron Elkins RN) Inf Hx Human Papilloma Virus: No (12/12/2016 16:56:Caron Elkins RN) Inf Hx Pt/Partner Genital Herpes: No (12/12/2016 16:56:Caron Elkins RN) Inf Hx Tuberculosis/Exposure: No (12/12/2016 16:56:Caron Elkins RN) Inf Hx Hepatitis B,C: No (12/12/2016 16:56:Caron Elkins RN) Inf Hx Rash or Viral Illness: No (12/12/2016 16:56:Caron Elkins RN) GENETIC HISTORY Gen Hx Age >=35 at DEMARIO: No (12/12/2016 16:56:Caron Elkins RN) Gen Hx Thalassemia: No (12/12/2016 16:56:Caron Elkins RN) Gen Hx Congenital Heart Defect: No (12/12/2016 16:56:Caron Elkins RN) Gen Hx Neural Tube Defect: No (12/12/2016 16:56:Caron Elkins RN) Gen Hx Down's Syndrome: No (12/12/2016 16:56:Caron Elkins RN) Gen Hx Adams-Sachs: No (12/12/2016 16:56:Caron Elkins RN) Gen Hx Don: No (12/12/2016 16:56:Caron Elkins RN) Gen Hx Familial Dysautonomia: No (12/12/2016 16:56:Caron Elkins RN) Gen Hx Sickle Cell Disease/Trait: No (12/12/2016 16:56:Caron Elkins RN) Gen Hx Hemophilia/Blood Disorder: No (12/12/2016 16:56:Caron Elkins RN) Gen Hx Muscular Dystrophy: No (12/12/2016 16:56:Caron Elkins RN) Gen Hx Cystic Fibrosis: No (12/12/2016 16:56:Caron Elkins RN) Gen Hx Huntingtons Chorea: No (12/12/2016 16:56:Caron Elkins RN) Gen Hx Mental Retardation/Autism: No (12/12/2016 16:56:Caron Elkins RN) Gen Hx Tested for Fragile X: No (12/12/2016 16:56:Caron Elkins RN) Gen Hx Other Inher/Chromosomal: No (12/12/2016 16:56:Caron Elkins RN) Gen Hx Maternal Metabolic DO: No (12/12/2016 16:56:Caron Elkins RN) Gen Hx Pt Father or FOB Defect: No (12/12/2016 16:56:Caron Elkins RN) Gen Hx Other Genetic History: No (12/12/2016 16:56:Caron Elkins RN) Gen Hx Drugs/Meds since LMP: No (12/12/2016 16:56:Caron Elkins RN)
--- NOTE | 2016-12-20 18:15 | L&D Care Plan ---
LD CARE PLANS Datetime Report Generated by CPAleisha: 12/20/2016 18:15 Datetime: 12/19/2016 14:40 State: Risk For (LUDA Liang) Related To: Labor and Delivery Process (LUDA Liang) Goal(s): Patients Pain will be Assessed and Managed; Patient will Verbalize Adequate Relief of Pain or the Ability to [place] with Current Pain (LUDA Liang) Interventions: Assess Pain Severity on Scale of 0 (None) to 5 (Severe); Assess Type, Location and Intensity of Pain Each Time Client Reports Discomfort and Notify Provider if Unusal Pain Develops; Encourage Proper Breathing and Relaxation Techniques; Offer Alternatives Such as Repositioning, Calm Environment, Massages, Diversional Activities, Ice Pack, Splinting, and Ambulation; Administer Analgesics as Ordered; Assist with Epidural Placement as Appropriate; Evaluate Therapeutic Effectiveness of Medication and Treatments (LUDA Liang) Outcome: Patient will Report Absence or Relief of Pain Consistent with Established Pain Goal (LUDA Liang) Status: Ongoing (LUDA Liang) Outcome: Patient will have a Decrease in Signs and Symptoms of Discomfort (Tammie Camp, RNC) Status: Ongoing (Tammie Dhillon, RNC) Outcome: Pain will be Controlled During Procedures (Tammie Dhillon, RNC) Status: Ongoing (Tammie Dhillon, RNC) State: Risk For (Tammie Dhillon, RNC) Related To: Labor and Delivery Process; Perceived or Actual Threat to ; Fear of Unknown; Situational Crisis; Medical Interventions; Significant Life Event (Tammie Dhillon, RNC) Goal(s): Patient will have Decreased Anxiety and be able to Function at Acceptable Levels (Tammie Dhillon, RNC) Interventions: Assess Verbal and Nonverbal Behavioral Indicators of Anxiety; Assist Patient to Identify and Verbalize Symptoms of Anxiety; Identify and Demonstrate Techniques to Control Anxiety; Assist Patient with Coping Mechanisms to Manage Anxiety; Provide Theraputic Touch for the Patient; Explain to Patient, Using a Calm Reassuring Approach and Nonmedical Terms, All Activities, Procedures, and Concerns; Instruct Patient and Family about Post Discharge Care, Limitations, Symptoms to Report and Resources Available (Tammie Dhillon, RNC) Outcome: Patient will Identify, Verbalize and Demonstrate Techniques to Control Anxiety (Tammie Dhillon, RNC) Status: Ongoing (Tammie Dhillon, RNC) Outcome: Patient's Posture, Facial Expressions, Gestures and Activity Level will Reflect Decreased Anxiety (Tammie Dhillon, RNC) Status: Ongoing (Tammie Dhillon, RNC) Outcome: Patient will Verbalize a Sense of Control and/or Acceptance of the Situation (Tammie Dhillon, RNC) Status: Ongoing (Tammie Dhillon, RNC) Outcome: Patient will Identify and Utilize Support Person (Tammie Dhillon RN) Status: Ongoing (Tammie Dhillon, RN) State: Actual (Tammie Dhillon, RNC) Related To: Labor and Delivery Process; Treatment and Procedures; Impending Alterations in Family Dynamics; Feeding and Care; Community Resources and Available Support Mechanisms (Tammie Dhillon, RNC) Goal(s): Patient will Accurately Verbalize Understanding of Plan of Care and Treatment; Patient and Family will Accurately Verbalize Understanding of the Disease Process (Tammie Dhillon, RNC) Interventions: Assess Motivation and Willingness of Patient/Family to Learn; Assess Preferred Learning Mode: One to One Instruction, Reading, Videos, Group Discussion or Demonstration; Assess Barriers to Learning: Pain, Emotional State, Language Barrier, Cognitive Impairment, Visual or Hearing Deficits; Assess Patient and Family Knowledge of Disease Process, Medications and Treatment; Discuss Therapy and/or Treatment Options, Describe Rationale Behind Management, Therapy and Treatment Recommendations; Instruct Patient and Family on Signs and Symptoms to Report; Instruct Patient and Family on Medication Effects and Side Effects; Provide Appropriate and Timely Education Using Multiple Techniques; Provide Patient and Family with Support Group Information and Resources; Give Clear and Thorough Explanations and Demonstrations (Tammie Dhillon, RNC) Outcome: Patient and Family will Verbalize Understanding of Condition, Treatment and Signs and Symptoms to Report (Tammie Dhillon, RNC) Status: Ongoing (Tammie Dhillon, RNC) Outcome: Patient will Identify Perceived Learning Needs and Express Motivation to Learn (Tammie Dhillon, RNC) Status: Ongoing (Tammie Dhillon, RN) Outcome: Patient will Verbalize Understanding of Desired Content, and/or Performs Desired Skill Prior to Discharge (Tammie Dhillon, RNC) Status: Ongoing (Tammie Dhillon, RN) State: Risk For (Tammie Dhillon, RN) Related To: Gestational Hypertension; Prolonged Labor or Induction (Tammie Dhillon, RNC) Goal(s): Patient will Achieve and Maintain a Balanced Fluid Volume Status; Hemodynamically Stable (Tammie Dhillon, RNC) Interventions: Monitor Vital Signs; Auscultate Breath Sounds; Monitor Patient for Skin Turgor, Mucous Membranes, Dry Skin, Weakness, Headaches and Confusion; Provide Oral Fluids as Ordered; Initiate and Maintain Intravenous Fluids as Ordered; Monitor Intake and Output as Indicated Per Patient Status; Accurately Measure Blood Loss; Monitor Lab and Test Results as Obtained and Notify Provider of Abnormal Findings; Monitor Patient's Weight (Tammie Dhillon, RN) Outcome: Patient will have Clear Lung Sounds (Tammie Dhillon, RNC) Status: Ongoing (Tammie Dhillon, RN) Outcome: Patient will have Vital Signs within Expected Range (Tammie Dhillon, RNC) Status: Ongoing (Tammie Dhillon, RN) Outcome: Urine Output will be within Expected Range (Tammie Dhillon, RNC) Status: Ongoing (Tammie Dhillon, RN) Outcome: Patient will have Minimal Generalized or Upper Extremity Edema (Tammie Dhillon, RNC) Status: Ongoing (Tammie Dhillon, RN) State: Risk For (Tammie Dhillon, RN) Related To: Labor and Delivery Process; Gestational Hypertension or Eclampsia (Tammie Dhillon, RN) Goal(s): Patient will Remain Free from Injury (Tammie Dhillon, RN) Interventions: Monitoring as per Hospital Protocol; Assess Neurological Status; Perform Risk Assessment of Patients with Induction and ; Perform Fall Risk Assessment and Prevention per Hospital Protocol; Perform DVT Risk Assessment and Prophylaxis per Hospital Protocol; Ensure that Oxygen, Suction, and Resuscitation Medications and Equipment are Readily Available; Confirm Patient ID Prior to Procedure(s) and Medication Administration per Hospital Policy (Tammie Dhillon, LUDA) Outcome: Successful Fall Risk Prevention (LUDA Liang) Status: Ongoing (LUDA Liang) Outcome: Patient will Deliver without Adverse Sequela (LUDA Liang) Status: Ongoing (Tammie Dhillon, LUDA) Outcome: Patient's Neurological Status will Remain Stable (LUDA Liang) Status: Ongoing (LUDA Liang) State: Risk For (LUDA Liang) Related To: Vaginal Delivery; Invasive Procedures (LUDA Liang) Goal(s): Patient will Maintain Optimal Skin Integrity, Free of Breakdown, Injury or Infection (Tammie Dhillon, LUDA) Interventions: Complete Screening for Pressure Ulcer Risk and Initiate Protocol per Hospital Policy; Monitor Site of Skin Impairment for Color Changes, Redness, Swelling, Warmth, Pain or Other Signs of Infection; Encourage and Assist with Position Changes; Monitor Patient's Mobility Status; Provide Adequate Nutrition and Fluids; Teach Patient Appropriate Hygienic Care; Teach Patient/Family Skin Care Management (Tammie Dhillon, LUDA) Outcome: Patient will not have Evidence of Injury Such as Skin Breakdown, Scrapes, Cuts, or Bruising (Tammie Dhillon, LUDA) Status: Ongoing (Tammie Dhillon, LUDA) Outcome: Patient will Report Any Altered Sensation or Pain at Site of Skin Impairment (LUDA Liang) Status: Ongoing (Tammie Dhillon, LUDA) Outcome: Patients Incisions and Wounds will be without Signs or Symptoms of Infection (Tammie Dhillon, RNC) Status: Ongoing (Tammie Dhillon, RNEvelyne) Outcome: Patient will Demonstrate Understanding of Plan to Heal Skin and Prevent Reinjury and Verbalize Risk Factors (LUDA Liang) Status: Ongoing (Tammie Dhillon, LUDA)
[2016-12-21] MEDS: ACETAMINOPHEN WITH CODEINE #3 TABLET PO PRN ×3 (01:15→21:10)
[2016-12-21] MEDS: IBUPROFEN 800 MG TABLET PO SCH ×3 (05:28→21:10)
--- NOTE | 2016-12-21 06:00 | L&D General Admission ---
General Admit Datetime Report Generated by CPN: 12/21/2016 06:00 INFORMATION Patient Age: 31 (12/05/2016 16:34:QS system process) EDC: 12/20/2016 00:00 (12/12/2016 16:56:Sarah Rasheed RN) : 1 (12/12/2016 16:56:Caron Elkins RN) Para: 0 (12/12/2016 16:56:Caron Elkins RN) Term: 0 (12/12/2016 16:56:Caron Elkins RN) : 0 (12/12/2016 16:56:Caron Elkins RN) Spontaneous Abortions: 0 (12/12/2016 16:56:Caron Elkins RN) Induced Abortions: 0 (12/12/2016 16:56:Caron Elkins RN) Livin (12/12/2016 16:56:Caron Elkins RN) Cesareans: 0 (12/12/2016 16:56:Caron Elkins RN) VBACs: 0 (12/12/2016 16:56:Caron Elkins RN) Ectopic: 0 (12/12/2016 16:56:Caron Elkins RN) Multiple Births: 0 (12/12/2016 16:56:Caron Elkins RN) Baby, Number in Womb: 1 (12/12/2016 16:56:Caron Elkins RN) CARE Primary Lieutenant Ballistics: [facility] (12/12/2016 16:56:Caron Elkins RN) Month of 1st Visit: 06/2016 (12/12/2016 16:56:Caron Elkins RN) Adequate Care: Yes (Annotations: Data stored by N on behalf of user) (12/12/2016 16:56:Caron Elkins RN) Prepregnancy Weight (lb): 210 (12/12/2016 16:56:Caron Elkins RN) Prepregnancy Weight (kg): 95.5 (12/12/2016 16:56:QS system process) Height (in): 63 (12/20/2016 04:40:QS system process) ALLERGIES Medication Allergy: No (12/12/2016 16:56:Caron Severo RN) Medication Allergies: No Known Allergies (12/19/2016) (12/19/2016 14:38:QS system process) Latex Allergy: No Latex Allergies (12/12/2016 16:56:Caron Vitrano, RN) Food Allergies: N/A (12/12/2016 16:56:Caron Randano RN) Environmental Allergies: N/A (12/12/2016 16:56:Caron Vitrano, RN) COMMUNICATION Primary Language: Israeli (12/12/2016 16:56:Caron Elkins RN) Medical Tx Preferred Language: Israeli (12/12/2016 16:56:Caronheydi Elkins RN) Communication Barrier(s): None (12/12/2016 16:56:Caron Vitrano, RN) DEMOGRAPHICS Address: [address] [place] [id number] (12/05/2016 16:34:QS system process) Zipcode: [address] (12/05/2016 16:34:QS system process) Home (12/05/2016 16:34:QS system process) SSN: [id number] (12/05/2016 16:34:QS system process) Next of Kin Name: INGRID BAILEY (12/05/2016 16:34:QS system process) Next of Kin (12/05/2016 16:34:QS system process) Next of Kin Relationship: SPO (12/05/2016 16:34:QS system process) Date of : 1985 (12/05/2016 16:34:QS system process) Marital Status: (12/05/2016 16:34:QS system process) Sex: Female (12/05/2016 16:34:QS system process) Race: (12/05/2016 16:34:QS system process) Ethnicity: Non- or (12/05/2016 16:34:QS system process) Anabaptism: Evangelical (12/05/2016 16:34:QS system process) DRUG AND ALCOHOL USE Alcohol: No (12/12/2016 16:56:Caron Elkins RN) Cigarettes: Former Smoker. [id number] (12/12/2016 16:56:Caron Elkins RN) Marijuana: No (12/12/2016 16:56:Caron Elkins RN) Cocaine: No (12/12/2016 16:56:Caron Elkins RN) Other Illicit Drugs: No (12/12/2016 16:56:Caron Elkins RN) VACCINE HISTORY Influenza Vaccine: Yes (12/12/2016 16:56:Caron Elkins RN) Pneumococcal Vaccine: No (12/12/2016 16:56:Caron Elkins RN) Tetanus Vaccine: Yes (12/12/2016 16:56:Caron Elkins RN) Tdap Vaccine: Yes (12/12/2016 16:56:Caron Elkins RN) Hepatitis B Vaccine: Yes (12/12/2016 16:56:Caron Elkins RN) Stacker Operator: [facility] (12/12/2016 16:56:Caron Elkins RN) Feeding Preference: Breast (12/12/2016 16:56:Caron Elkins RN) Benefit of Breast Feed Discussed: Yes (12/12/2016 16:56:Caron Elkins RN) Circumcision: Yes (12/12/2016 16:56:Caron Elkins RN) Classes Attended: No (12/12/2016 16:56:Caron Elkins RN) Tubal Ligation: No (12/12/2016 16:56:Caron Elkins RN) Tubal Authorization Signed: N/A (12/12/2016 16:56:Caron Elkins RN) Consent Signed: N/A (12/12/2016 16:56:Caron Elkins RN) Pain Management Plans: Epidural (12/12/2016 16:56:Caron Elkins RN) Plans for Labor and Delivery: None (12/12/2016 16:56:Caron Elkins RN) Support Person: Ingrid (12/12/2016 16:56:Caron Elkins RN) Support Person Relationship: (12/12/2016 16:56:Caron Elkins RN) Cultural/Spritual Practice: [facility] (12/12/2016 16:56:Caron Elkins RN) Spir/Cult Dietary Needs: No (12/12/2016 16:56:Caron Elkins RN) LIVING SITUATION/DISCHARGE PLAN Living Arrangements: House (12/12/2016 16:56:Caron Elkins RN) Adequate Access to:: Electric; Heat; Refrigeration; Plumbing/Running water; Phone; Transportation (12/12/2016 16:56:Caron Elkins RN) WIC Program: [place] (12/12/2016 16:56:Caron Elkins RN) Discharge Senior Product Development Scientist Person: (12/12/2016 16:56:Caron Elkins RN) Person to Help after Discharge: (12/12/2016 16:56:Caron Elkins RN) Currently Using Commun Resources: [place] (12/12/2016 16:56:Caron Elkins RN) Outside Agency/Retail Center Receptionist: No (12/12/2016 16:56:Caron Elkins RN) Car Seat for Discharge: Yes (12/12/2016 16:56:Caron Elkins RN) Adoption Requested: No (12/12/2016 16:56:Caron Elkins RN) Pt Contact w/ Post : N/A (12/12/2016 16:56:Caron Elkins RN) LABS Blood Type: A Positive (12/12/2016 16:56:Caron Elkins RN) Antibody Screen: Negative (12/12/2016 16:56:Caron Elkins RN) Rho(G) this : Not Applicable (12/12/2016 16:56:Caron Elkins RN) Hemoglobin: 11.1 L (12/19/2016 14:34:QS system process) Hematocrit: 33.5 L (12/19/2016 14:34:QS system process) MCV: 86 (12/19/2016 14:34:QS system process) Group Beta Strep: Positive (12/12/2016 16:56:Caron Elkins RN) Gonorrhea: Negative (12/12/2016 16:56:Caron Elkins RN) Chlamydia: Negative (12/12/2016 16:56:Caron Elkins RN) RPR/VDRL: Nonreactive (12/12/2016 16:56:Caron Elkins RN) HIV Exposure Test: Negative (12/12/2016 16:56:Caron Elkins RN) Hepatitis B: Negative (12/12/2016 16:56:Caron Elkins RN) Rubella: Immune (12/12/2016 16:56:Caron Elkins RN) OB/PREVIOUS HISTORY Current Procedures: None (12/12/2016 16:56:Mary Maradiaga RN) History of Previous : No (12/12/2016 16:56:Caron Elkins RN) History of Gestational Diabetes: No (12/12/2016 16:56:Caron Elkins RN) History of PIH: No (12/12/2016 16:56:Caron Elkins RN) History of Incompetent Cervix: No (12/12/2016 16:56:Caron Elkins RN) History of Placenta Previa/Abrup: No (12/12/2016 16:56:Caron Elkins RN) History of Macrosomia: No (12/12/2016 16:56:Caron Elkins RN) History of IUGR: No (12/12/2016 16:56:Caron Elkins RN) History of Hemorrhage: No (12/12/2016 16:56:Caron Elkins RN) History of Loss/Stillborn: No (12/12/2016 16:56:Caron Elkins RN) History of : No (12/12/2016 16:56:Caron Elkins RN) History of D (Rh) Sensitization: No (12/12/2016 16:56:Caron Elkins RN) History Recurrent Loss/Stillborn: No (12/12/2016 16:56:Caron Elkins RN) History Depression/PP Depression: No (12/12/2016 16:56:Caron Elkins RN) History of Uterine Anomaly/PEDRO: No (12/12/2016 16:56:Caron Elkins RN) History of Infertility: No (12/12/2016 16:56:Caron Elkins RN) History of ART Treatment: No (12/12/2016 16:56:Caron Elkins RN) History of PEDRO: No (12/12/2016 16:56:Caron Elkins RN) MEDICAL HISTORY Med Hx Diabetes: No (12/12/2016 16:56:Caron Elkins RN) Med Hx Hypertension: No (12/12/2016 16:56:Caron Elkins RN) Med Hx Heart Disease: No (12/12/2016 16:56:Caron Elkins RN) Med Hx Autoimmune Disorder: No (12/12/2016 16:56:Caron Elkins RN) Med Hx Kidney Disease/UTI: No (12/12/2016 16:56:Caron Elkins RN) Med Hx Neurologic/Epilepsy: No (12/12/2016 16:56:Caron Elkins RN) Med Hx Psychiatric Disorders: No (12/12/2016 16:56:Caron Elkins RN) Med Hx Hepatitis/Liver Disease: No (12/12/2016 16:56:Caron Elkins RN) Med Hx Varicosities/Phlebitis: No (12/12/2016 16:56:Caron Elkins RN) Med Hx Thyroid Dysfunction: No (12/12/2016 16:56:Caron Elkins RN) Med Hx Trauma/Violence: No (12/12/2016 16:56:Caron Elkins RN) Med Hx Blood Transfusion: No (12/12/2016 16:56:Caron Elkins RN) Med Hx Pulmonary (Asthma,TB): Yes (12/12/2016 16:56:Caron Elkins RN) Med Hx Breast: No (12/12/2016 16:56:Caron Elkins RN) Med Hx BENCH REPAIR TECHNICIAN Surgery: No (12/12/2016 16:56:Caron Elkins RN) Med Hx Hospitalization/Surgery: No (12/12/2016 16:56:Caron Elkins RN) Med Hx Anesthetic Complications: No (12/12/2016 16:56:Caron Elkins RN) Med Hx Abnormal Pap Smear: No (12/12/2016 16:56:Caron Elkins RN) Other Medical Diseases: No (12/12/2016 16:56:Caron Elkins RN) Med Hx Significant Family Hx: No (12/12/2016 16:56:Caron Elkins RN) Details of Med/Surg Hx: Asthma: Albuterol PRN; Unknown last use Surgery: L knee surgery 2002 (12/12/2016 16:56:Caron Elkins RN) INFECTIOUS HISTORY Inf Hx Gonorrhea: No (12/12/2016 16:56:Caron Elkins RN) Inf Hx Chlamydia: No (12/12/2016 16:56:Caron Elkins RN) Inf Hx Syphilis: No (12/12/2016 16:56:Caron Elkins RN) Inf Hx HIV/AIDS: No (12/12/2016 16:56:Caron Elkins RN) Inf Hx Human Papilloma Virus: No (12/12/2016 16:56:Caron Elkins RN) Inf Hx Pt/Partner Genital Herpes: No (12/12/2016 16:56:Caron Elkins RN) Inf Hx Tuberculosis/Exposure: No (12/12/2016 16:56:Caron Elkins RN) Inf Hx Hepatitis B,C: No (12/12/2016 16:56:Caron Elkins RN) Inf Hx Rash or Viral Illness: No (12/12/2016 16:56:Caron Elkins RN) GENETIC HISTORY Gen Hx Age >=35 at DEMARIO: No (12/12/2016 16:56:Caron Elkins RN) Gen Hx Thalassemia: No (12/12/2016 16:56:Caron Elkins RN) Gen Hx Congenital Heart Defect: No (12/12/2016 16:56:Caron Elkins RN) Gen Hx Neural Tube Defect: No (12/12/2016 16:56:Caron Elkins RN) Gen Hx Down's Syndrome: No (12/12/2016 16:56:Caron Elkins RN) Gen Hx Adams-Sachs: No (12/12/2016 16:56:Caron Elkins RN) Gen Hx Don: No (12/12/2016 16:56:Caron Elkins RN) Gen Hx Familial Dysautonomia: No (12/12/2016 16:56:Caron Elkins RN) Gen Hx Sickle Cell Disease/Trait: No (12/12/2016 16:56:Caron Elkins RN) Gen Hx Hemophilia/Blood Disorder: No (12/12/2016 16:56:Caron Elkins RN) Gen Hx Muscular Dystrophy: No (12/12/2016 16:56:Caron Elkins RN) Gen Hx Cystic Fibrosis: No (12/12/2016 16:56:Caron Elkins RN) Gen Hx Huntingtons Chorea: No (12/12/2016 16:56:Caron Elkins RN) Gen Hx Mental Retardation/Autism: No (12/12/2016 16:56:Caron Elkins RN) Gen Hx Tested for Fragile X: No (12/12/2016 16:56:Caron Elkins RN) Gen Hx Other Inher/Chromosomal: No (12/12/2016 16:56:Caron Elkins RN) Gen Hx Maternal Metabolic DO: No (12/12/2016 16:56:Caron Elkins RN) Gen Hx Pt Father or FOB Defect: No (12/12/2016 16:56:Caron Elkins RN) Gen Hx Other Genetic History: No (12/12/2016 16:56:Caron Elkins RN) Gen Hx Drugs/Meds since LMP: No (12/12/2016 16:56:Caron Elkins RN)
--- NOTE | 2016-12-21 06:00 | L&D Current Admission ---
Current Admit Datetime Report Generated by CPN: 12/21/2016 06:00 ADMISSION INFORMATION Current Admit Date/Time: 12/19/2016 14:00 (12/19/2016 14:26:Caron Elkins RN) Reason for Admission: Rupture of Membranes (12/19/2016 14:26:Caron Elkins RN) Chief Complaint: Suspected Rupture of Membranes (12/19/2016 14:17:Caron Elkins RN) EGA per Dates: 39.6 (12/19/2016 14:26:QS system process) Method of Arrival: Ambulatory; Direct Admit (12/19/2016 14:26:Caron Elkins RN) Admitted From: Office (12/19/2016 14:26:Caron Elkins RN) Reason for Induction: Gestational Hypertension (12/19/2016 14:26:Caron Elkins RN) Records Available: Yes (12/19/2016 14:26:Caron Elkins RN) General Admission Information: Reviewed; Confirmed (12/19/2016 14:26:Caron Elkins RN) General Admission Reviewed By: Erica Elkins RN (12/19/2016 14:26:Caron Elkins RN) BELONGINGS/ADVANCED DIRECTIVES Other Belongings: See belongings consent (12/19/2016 14:26:Caron Elkins RN) Disposition of Belongings: Kept with Patient (12/19/2016 14:26:Caron Elkins RN) Advance Direct for Healthcare: No, and Wants No Information (12/19/2016 14:26:Caron Elkins RN) Durable Power of Oyster Grower: No (12/19/2016 14:26:Caron Elkins RN) Living Will: No (12/19/2016 14:26:Caron Elkins RN) Organ Donor: Yes (12/19/2016 14:26:Caron Elkins RN) Pt Rights Information Given: Yes (12/19/2016 14:26:Caron Elkins RN) Pt Understands Pt Rights: Yes (12/19/2016 14:26:Caron Elkins RN) LEARNING ASSESSMENT Knowledge Level: Understands L_D Process; Understands Care Activities; Had Pre-Hospital Education; Understands Diagnosis (12/19/2016 14:26:Caron Elkins RN) Barriers to Learning: None (12/19/2016 14:26:Caron Elkins RN) Learning Readiness: Motivated (12/19/2016 14:26:Caron Elkins RN) Learns Best By: 1 to 1 Instruction (12/19/2016 14::Caron Elkins RN) Learning Needs: Labor and Delivery Process; Pain Management; Symptoms to Report; Treatment Plan; Medication; Diagnosis; Nutrition; Equipment; Care; Community Resources (12/19/2016 14::Caron Elkins RN) NUTRITIONAL/FUNCTIONAL SCREENING Problem with Appetite >5 Days: No (12/19/2016 14:26:Caron Elkins RN) Chew/Swallow Difficulties: No (12/19/2016 14:26:Caron Elkins RN) Inappropriate Wt Gain/Loss: No (12/19/2016 14:26:Caron Elkins RN) Presence Skin Breakdown/Ulcer: No (12/19/2016 14:26:Caron Elkins RN) Special Diet: No (12/19/2016 14:26:Caron Elkins RN) Pt Requests Pre Press Operator Visit: No (12/19/2016 14:26:Caron Elkins RN) Hx of Any of the Following?: N/A (12/19/2016 14:26:Caron Elkins RN) New Diagnosis of: Gestational Hypertension (12/19/2016 14:26:Caron Elkins RN) Requires Assist w/Ambulation: No (12/19/2016 14:26:Caron Elkins RN) Uses Assist Device to Ambulate: No (12/19/2016 14:26:Caron Elkins RN) Pt Requires Help w/ADL's: No (12/19/2016 14:26:Caron Elkins RN)
[2016-12-21 08:07] LABS: HEMATOCRIT 31.9 % (36.0-47.0); HEMOGLOBIN 10.4 g/dL (12.0-15.5); HGB HCT DIFFERENCE -0.7; MEAN CORPUSCULAR HEMOGLOBIN 28.2 pg (27.0-33.4); MEAN CORPUSCULAR HGB CONC 32.6 g/dL (32.0-36.0); MEAN CORPUSCULAR VOLUME 87 fl (80-97); RED BLOOD COUNT 3.69 10^6/uL (3.72-5.28); RED CELL DISTRIBUTION WIDTH 15.1 % (11.5-14.0); WHITE BLOOD COUNT 17.7 10^3/uL (4.0-10.5)
--- NOTE | 2016-12-21 09:55 | PDOC PROGRESS REPORT ---
Subjective-OB Subjective: Post Delivery Day: 31 year old. Denies any needs at this time Sitting up holding baby, feeling better, voiding, ambulating, scant lochia Physical Exam (OB) Vital Signs: Temp Pulse Resp BP Pulse Ox 97.7 F 83 22 H 143/67 H 100 12/21/16 08:17 12/21/16 08:17 12/21/16 08:17 12/21/16 08:17 12/21/16 08:17 Intake & Output 12/20/16 12/21/16 12/22/16 05:59 06:59 06:59 Intake Total Balance Weight - PIH/Pre-Eclampsia DTR's: 1 + Clonus: Negative Headache: Absent Epigastric Pain: No Visual Changes: No - Lochia Lochia Amount: Scant < 10 ml Lochia Color: Rubra/Red - Abdomen Description: Tender, Soft Hernia Present: No Fundal Description: Firm, Midline Fundal Height: u/u - u/2 Objective-Diagnostic Laboratory: 12/21/16 07:56 12/19/16 14:34 12/21/16 07:56 WBC 17.7 H RBC 3.69 L Hgb 10.4 L Hct 31.9 L MCV 87 MCH 28.2 MCHC 32.6 RDW 15.1 H Plt Count 180 Assessment and Plan(PN) - Assessment and Plan (1) Vaginal delivery Is this a current diagnosis for this admission?: Yes - Time Spent with Patient Medications reviewed and adjusted accordingly: Yes - Disposition Anticipated Discharge: Home Within: within 24 hours - Rx for breast pump and note to be out of work x 6 weeks given
[2016-12-21] MEDS: SENNOSIDES/DOCUSATE 8.6-50 MG 1 EACH TABLET PO SCH (10:24)
[2016-12-21] MEDS: FERROUS SULFATE 325 MG TABLET PO SCH ×2 (10:24→17:31)
[2016-12-21] MEDS: DOCUSATE SODIUM 100 MG CAPSULE PO SCH ×2 (10:24→17:31)
[2016-12-21] MEDS: PRENATAL VITAMIN W-O CA NO5/FE FUMARATE/FA CAPSULE PO SCH (10:24)
[2016-12-21] MEDS: FAMOTIDINE 20 MG TABLET PO SCH ×2 (10:24→21:09)
[2016-12-22] MEDS: IBUPROFEN 800 MG TABLET PO SCH (04:50)
[2016-12-22] MEDS: PRENATAL VITAMIN W-O CA NO5/FE FUMARATE/FA CAPSULE PO SCH (10:09)
[2016-12-22] MEDS: SENNOSIDES/DOCUSATE 8.6-50 MG 1 EACH TABLET PO SCH (10:10)
[2016-12-22] MEDS: FAMOTIDINE 20 MG TABLET PO SCH (10:10)
[2016-12-22] MEDS: DOCUSATE SODIUM 100 MG CAPSULE PO SCH (10:10)
[2016-12-22] MEDS: FERROUS SULFATE 325 MG TABLET PO SCH (10:10)
--- NOTE | 2016-12-22 11:16 | Delivery Summary ---
Del Sum A-C Datetime Report Generated by CPN: 12/22/2016 11:16 ADMISSION DATA Chief Complaint: Uterine Contractions Indication for Induction Comment: SROM Admission Impression: Ruptured Membranes Admit Provider Comments: efw 8 lbs DELIVERY PERSONNEL Delivery Doctor:: Ismael Kelly MD Labor and Delivery Nurse:: Mary Maradiaga RNcard grinder helper Nurse:: Radha Franco RN Nursery Nurse:: Sharon Storm RN Grade And Center Marker/WIND SCIENCE AND PLANNING: Carlos Brock WIND SCIENCE AND PLANNING MATERNAL INFORMATION Delivery Anesthesia: Epidural Medications After Delivery: Pitocin Bolus-Please Comment; Pitocin Drip 20 Units/1000ml NSS Maternal Complications: None LABOR SUMMARY EDC: 12/20/2016 00:00 No. Babies in Womb: 1 Attempted: No Labor Anesthesia: Epidural LABOR INFORMATION Reason for Induction: Gestational Hypertension Onset of Labor: 12/19/2016 19:08 Complete Dilatation: 12/20/2016 00:55 Oxytocin: Augmentation Group B Beta Strep: Positive Antibiotics # of Doses: 3 Antibiotics Time of Last Dose: 2345 Name of Antibiotic Given: PCN Steroids Given: None Reason Steroids Not Administered: Not Applicable MEMBRANES Membranes Rupture Method: Spontaneous Rupture of Membranes: 12/19/2016 14:50 Length of Rupture (hr): 11.80 Amniotic Fluid Color: Moderate Meconium Amniotic Fluid Amount: Small Amniotic Fluid Odor: Normal STAGES OF LABOR Stage 1 hr: 5 Stage 1 min: 47 Stage 2 hr: 1 Stage 2 min: 43 Stage 3 hr: 0 Stage 3 min: 6 Total Time in Labor hr: 7 Total Time in Labor min: 36 VAGINAL DELIVERY Episiotomy: None Laceration Extension: First Degree Laceration Type: Vaginal Laceration Repair: Yes Laceration Repair Note: one 3-0 chromic used to repair vaginal laceration Sponge Count Correct: N/A; Vaginal Sweep Performed Sharps Count Correct: Yes CSECTION DELIVERY Primary Indication: N/A Secondary Indication: N/A CSection Incidence: N/A Labor: N/A Elective: N/A CSection Incision: N/A BABY A INFORMATION Infant Delivery Date/Time: 12/20/2016 02:38 Method of Delivery: Vaginal Born in Route : No : N/A Forceps: N/A Vacuum Extraction: N/A Shoulder Dystocia : No PRESENTATION/POSITION BABY A Presentation: Cephalic Cephalic Presentation: Vertex Vertex Position: Left Occipital Anterior Breech Presentation: N/A PLACENTA INFORMATION BABY A Placenta Delivery Time : 12/20/2016 02:44 Placenta Method of Delivery: Spontaneous Placenta Status: Delivered SCORES BABY A Heart Rate 1 min: >100 bpm Resp Effort 1 min: Absent Reflex Irritability 1 min: [place]imace Muscle Tone 1 min: Flaccid Color 1 min: Body [place], Extremities Blue Resuscitation Effort 1 min: Tactile Stimulation; PPV/NCPAP SCORE 1 MIN: 4 Heart Rate 5 min: >100 bpm Resp Effort 5 min: Slow, Irregular Reflex Irritability 5 min: Cough or Sneeze or Pulls Away Muscle Tone 5 min: Some Flexion of Extremities Color 5 min: Completely [place] Resuscitation Effort 5 min: PPV/NCPAP SCORE 5 MIN: 8 Heart Rate 10 min: >100 bpm Resp Effort 10 min: Slow, Irregular Reflex Irritability 10 min: Cough or Sneeze or Pulls Away Muscle Tone 10 min: Some Flexion of Extremities Color 10 min: Completely [place] SCORE 10 MIN: 8 INFANT INFORMATION BABY A Gestational Age at Delivery: 40.0 Gestational Status: Full Term- 39- 40.6 Weeks Infant Outcome : Liveborn Infant Condition : Stable Sex: Male IDENTIFICATION BABY A Verification Date/Time: 12/20/2016 02:45 ID Band Number: [id number] Mother's Name Verified: Yes RN Verifying : RN Marinavera Additional Verifying Personnel: DOMINIQUE June WEIGHT/LENGTH BABY A Infant Birthweight (gm): 3520 Infant Weight (lb): 7 Infant Weight (oz): 12 Infant Length (in): 20.50 Infant Length (cm): 52.07 CORD INFORMATION BABY A No. Cord Vessels: 3 Nuchal Cord : N/A Cord Blood Taken: Yes-For Storage (Mom's Blood type +) Infant Suction: Mouth; Nose ASSESSMENT BABY A Infant Complications: Meconium Physical Findings at Delivery: Molding of the Head Skin to Skin: Yes Transferred To: Nursery BABY B INFORMATION : N/A SIGNATURES Signature: with User ID: [email or web address]
--- NOTE | 2016-12-22 11:36 | PDOC DISCHARGE SUMMARY ---
Final Diagnosis Discharge Date: 12/22/16 - Final Diagnosis (1) Gestational [-induced] hypertension without significant proteinuria , unspecified trimester Is this a current diagnosis for this admission?: Yes (2) Vaginal delivery Is this a current diagnosis for this admission?: Yes Discharge Data - Discharge Medication Home Medications: Esomeprazole Magnesium [Nexium] 20 mg PO DAILY 12/12/16 Vit/Iron Fumarate/FA [ Tablet] 1 tab PO DAILY 12/12/16 Reason(s) for Admission: Induction of Labor Procedures: NST Intrapartum Procedure(s): Spontaneous Vaginal Delivery Complication(s): Laceration-Vaginal Laceration-Degree: 1st - Diagnosis Test Laboratory: Temp Pulse Resp BP Pulse Ox 97.7 F 66 17 126/67 H 100 12/22/16 08:57 12/22/16 08:57 12/22/16 08:57 12/22/16 08:57 12/22/16 08:57 12/19/16 12/19/16 12/21/16 13:58 14:34 07:56 RBC 3.90 3.69 L Hgb 11.1 L 10.4 L Hct 33.5 L 31.9 L Urine Opiates Screen NEGATIVE - Discharge information/Instructions Discharge Activity: Activity As Tolerated, No Lifting Over 10 Pounds, Pelvic Rest, No tub bath Discharge Diet: Regular Disposition: HOME, SELF-CARE Follow [facility]: [facility] in: 4, Weeks
[2016-12-22 12:14] VITALS: BP 126/67
[2016-12-22] MEDS ORDERED: RINGERS SOLUTION,LACTATED 1,000 ML IV ONE (13:00)
--- NOTE | 2016-12-23 06:01 | L&D General Admission ---
General Admit Datetime Report Generated by CPN: 12/23/2016 06:00 INFORMATION Patient Age: 31 (12/05/2016 16:34:QS system process) EDC: 12/20/2016 00:00 (12/12/2016 16:56:Sarah Rasheed RN) : 1 (12/12/2016 16:56:Caron Elkins RN) Para: 0 (12/12/2016 16:56:Caron Elkins RN) Term: 0 (12/12/2016 16:56:Caron Elkins RN) : 0 (12/12/2016 16:56:Caron Elkins RN) Spontaneous Abortions: 0 (12/12/2016 16:56:Caron Elkins RN) Induced Abortions: 0 (12/12/2016 16:56:Caron Elkins RN) Livin (12/12/2016 16:56:Caron Elkins RN) Cesareans: 0 (12/12/2016 16:56:Caron Elkins RN) VBACs: 0 (12/12/2016 16:56:Caron Elkins RN) Ectopic: 0 (12/12/2016 16:56:Caron Elkins RN) Multiple Births: 0 (12/12/2016 16:56:Caron Elkins RN) Baby, Number in Womb: 1 (12/12/2016 16:56:Caron Elkins RN) CARE Primary Buffing Wheel Operator: [facility] (12/12/2016 16:56:Caron Elkins RN) Month of 1st Visit: 06/2016 (12/12/2016 16:56:Caron Elkins RN) Adequate Care: Yes (Annotations: Data stored by N on behalf of user) (12/12/2016 16:56:Caron Elkins RN) Prepregnancy Weight (lb): 210 (12/12/2016 16:56:Caron Elkins RN) Prepregnancy Weight (kg): 95.5 (12/12/2016 16:56:QS system process) Height (in): 63 (12/22/2016 11:36:QS system process) ALLERGIES Medication Allergy: No (12/12/2016 16:56:Caron Severo RN) Medication Allergies: No Known Allergies (12/19/2016) (12/19/2016 14:38:QS system process) Latex Allergy: No Latex Allergies (12/12/2016 16:56:Caron Vitrano, RN) Food Allergies: N/A (12/12/2016 16:56:Caron Randano RN) Environmental Allergies: N/A (12/12/2016 16:56:Caron Vitrano, RN) COMMUNICATION Primary Language: South Korean (12/12/2016 16:56:Caron Elkins RN) Medical Tx Preferred Language: South Korean (12/12/2016 16:56:Caronheydi Elkins RN) Communication Barrier(s): None (12/12/2016 16:56:Caron Vitrano, RN) DEMOGRAPHICS Address: [address] [place] [id number] (12/05/2016 16:34:QS system process) Zipcode: [address] (12/05/2016 16:34:QS system process) Home (12/05/2016 16:34:QS system process) SSN: [id number] (12/05/2016 16:34:QS system process) Next of Kin Name: INGRID BAILEY (12/05/2016 16:34:QS system process) Next of Kin (12/05/2016 16:34:QS system process) Next of Kin Relationship: SPO (12/05/2016 16:34:QS system process) Date of : 1985 (12/05/2016 16:34:QS system process) Marital Status: (12/05/2016 16:34:QS system process) Sex: Female (12/05/2016 16:34:QS system process) Race: (12/05/2016 16:34:QS system process) Ethnicity: Non- or (12/05/2016 16:34:QS system process) Lutheran: Latter-Day (12/05/2016 16:34:QS system process) DRUG AND ALCOHOL USE Alcohol: No (12/12/2016 16:56:Caron Elkins RN) Cigarettes: Former Smoker. [id number] (12/12/2016 16:56:Caron Elkins RN) Marijuana: No (12/12/2016 16:56:Caron Elkins RN) Cocaine: No (12/12/2016 16:56:Caron Elkins RN) Other Illicit Drugs: No (12/12/2016 16:56:Caron Elkins RN) VACCINE HISTORY Influenza Vaccine: Yes (12/12/2016 16:56:Caron Elkins RN) Pneumococcal Vaccine: No (12/12/2016 16:56:Caron Elkins RN) Tetanus Vaccine: Yes (12/12/2016 16:56:Caron Elkins RN) Tdap Vaccine: Yes (12/12/2016 16:56:Caron Elkins RN) Hepatitis B Vaccine: Yes (12/12/2016 16:56:Caron Elkins RN) Manager Psychology: [facility] (12/12/2016 16:56:Caron Elkins RN) Feeding Preference: Breast (12/12/2016 16:56:Caron Elkins RN) Benefit of Breast Feed Discussed: Yes (12/12/2016 16:56:Caron Elkins RN) Circumcision: Yes (12/12/2016 16:56:Caron Elkins RN) Classes Attended: No (12/12/2016 16:56:Caron Elkins RN) Tubal Ligation: No (12/12/2016 16:56:Caron Elkins RN) Tubal Authorization Signed: N/A (12/12/2016 16:56:Caron Elkins RN) Consent Signed: N/A (12/12/2016 16:56:Caron Elkins RN) Pain Management Plans: Epidural (12/12/2016 16:56:Caron Elkins RN) Plans for Labor and Delivery: None (12/12/2016 16:56:Caron Elkins RN) Support Person: Ingrid (12/12/2016 16:56:Caron Elkins RN) Support Person Relationship: (12/12/2016 16:56:Caron Elkins RN) Cultural/Spritual Practice: [facility] (12/12/2016 16:56:Caron Elkins RN) Spir/Cult Dietary Needs: No (12/12/2016 16:56:Caron Elkins RN) LIVING SITUATION/DISCHARGE PLAN Living Arrangements: House (12/12/2016 16:56:Caron Elkins RN) Adequate Access to:: Electric; Heat; Refrigeration; Plumbing/Running water; Phone; Transportation (12/12/2016 16:56:Caron Elkins RN) WIC Program: [facility] (12/12/2016 16:56:Caron Elkins RN) Discharge Door To Door Selling Agent Person: (12/12/2016 16:56:Caron Elkins RN) Person to Help after Discharge: (12/12/2016 16:56:Caron Elkins RN) Currently Using Commun Resources: [facility] (12/12/2016 16:56:Caron Elkins RN) Outside Agency/Tailing Machine Operator: No (12/12/2016 16:56:Caron Elkins RN) Car Seat for Discharge: Yes (12/12/2016 16:56:Caron Elkins RN) Adoption Requested: No (12/12/2016 16:56:Caron Elkins RN) Pt Contact w/ Post : N/A (12/12/2016 16:56:Caron Elkins RN) LABS Blood Type: A Positive (12/12/2016 16:56:Caron Elkins RN) Antibody Screen: Negative (12/12/2016 16:56:Caron Elkins RN) Rho(G) this : Not Applicable (12/12/2016 16:56:Caron Elkins RN) Hemoglobin: 10.4 L (12/21/2016 07:56:QS system process) Hematocrit: 31.9 L (12/21/2016 07:56:QS system process) MCV: 87 (12/21/2016 07:56:QS system process) Group Beta Strep: Positive (12/12/2016 16:56:Caron Elkins RN) Gonorrhea: Negative (12/12/2016 16:56:Caron Elkins RN) Chlamydia: Negative (12/12/2016 16:56:Caron Elkins RN) RPR/VDRL: Nonreactive (12/12/2016 16:56:Caron Elkins RN) HIV Exposure Test: Negative (12/12/2016 16:56:Caron Elkins RN) Hepatitis B: Negative (12/12/2016 16:56:Caron Elkins RN) Rubella: Immune (12/12/2016 16:56:Caron Elkins RN) OB/PREVIOUS HISTORY Current Procedures: None (12/12/2016 16:56:Mary Maradiaga RN) History of Previous : No (12/12/2016 16:56:Caron Elkins RN) History of Gestational Diabetes: No (12/12/2016 16:56:Caron Elkins RN) History of PIH: No (12/12/2016 16:56:Caron Elkins RN) History of Incompetent Cervix: No (12/12/2016 16:56:Caron Elkins RN) History of Placenta Previa/Abrup: No (12/12/2016 16:56:Caron Elkins RN) History of Macrosomia: No (12/12/2016 16:56:Caron Elkins RN) History of IUGR: No (12/12/2016 16:56:Caron Elkins RN) History of Hemorrhage: No (12/12/2016 16:56:Caron Elkins RN) History of Loss/Stillborn: No (12/12/2016 16:56:Caron Elkins RN) History of : No (12/12/2016 16:56:Caron Elkins RN) History of D (Rh) Sensitization: No (12/12/2016 16:56:Caron Elkins RN) History Recurrent Loss/Stillborn: No (12/12/2016 16:56:Caron Elkins RN) History Depression/PP Depression: No (12/12/2016 16:56:Caron Elkins RN) History of Uterine Anomaly/PEDRO: No (12/12/2016 16:56:Caron Elkins RN) History of Infertility: No (12/12/2016 16:56:Caron Elkins RN) History of ART Treatment: No (12/12/2016 16:56:Caron Elkins RN) History of PEDRO: No (12/12/2016 16:56:Caron Elkins RN) MEDICAL HISTORY Med Hx Diabetes: No (12/12/2016 16:56:Caron Elkins RN) Med Hx Hypertension: No (12/12/2016 16:56:Caron Elkins RN) Med Hx Heart Disease: No (12/12/2016 16:56:Caron Elkins RN) Med Hx Autoimmune Disorder: No (12/12/2016 16:56:Caron Elkins RN) Med Hx Kidney Disease/UTI: No (12/12/2016 16:56:Caron Elkins RN) Med Hx Neurologic/Epilepsy: No (12/12/2016 16:56:Caron Elkins RN) Med Hx Psychiatric Disorders: No (12/12/2016 16:56:Caron Elkins RN) Med Hx Hepatitis/Liver Disease: No (12/12/2016 16:56:Caron Elkins RN) Med Hx Varicosities/Phlebitis: No (12/12/2016 16:56:Caron Elkins RN) Med Hx Thyroid Dysfunction: No (12/12/2016 16:56:Caron Elkins RN) Med Hx Trauma/Violence: No (12/12/2016 16:56:Caron Elkins RN) Med Hx Blood Transfusion: No (12/12/2016 16:56:Caron Elkins RN) Med Hx Pulmonary (Asthma,TB): Yes (12/12/2016 16:56:Caron Elkins RN) Med Hx Breast: No (12/12/2016 16:56:Caron Elkins RN) Med Hx LINK TRAINER Surgery: No (12/12/2016 16:56:Caron Elkins RN) Med Hx Hospitalization/Surgery: No (12/12/2016 16:56:Caron Elkins RN) Med Hx Anesthetic Complications: No (12/12/2016 16:56:Caron Elkins RN) Med Hx Abnormal Pap Smear: No (12/12/2016 16:56:Caron Elkins RN) Other Medical Diseases: No (12/12/2016 16:56:Caron Elkins RN) Med Hx Significant Family Hx: No (12/12/2016 16:56:Caron Elkins RN) Details of Med/Surg Hx: Asthma: Albuterol PRN; Unknown last use Surgery: L knee surgery 2002 (12/12/2016 16:56:Caron Elkins RN) INFECTIOUS HISTORY Inf Hx Gonorrhea: No (12/12/2016 16:56:Caron Elkins RN) Inf Hx Chlamydia: No (12/12/2016 16:56:Caron Elkins RN) Inf Hx Syphilis: No (12/12/2016 16:56:Caron Elkins RN) Inf Hx HIV/AIDS: No (12/12/2016 16:56:Caron Elkins RN) Inf Hx Human Papilloma Virus: No (12/12/2016 16:56:Caron Elkins RN) Inf Hx Pt/Partner Genital Herpes: No (12/12/2016 16:56:Caron Elkins RN) Inf Hx Tuberculosis/Exposure: No (12/12/2016 16:56:Caron Elkins RN) Inf Hx Hepatitis B,C: No (12/12/2016 16:56:Caron Elkins RN) Inf Hx Rash or Viral Illness: No (12/12/2016 16:56:Caron Elkins RN) GENETIC HISTORY Gen Hx Age >=35 at DEMARIO: No (12/12/2016 16:56:Caron Elkins RN) Gen Hx Thalassemia: No (12/12/2016 16:56:Caron Elkins RN) Gen Hx Congenital Heart Defect: No (12/12/2016 16:56:Caron Elkins RN) Gen Hx Neural Tube Defect: No (12/12/2016 16:56:Caron Elkins RN) Gen Hx Down's Syndrome: No (12/12/2016 16:56:Caron Elkins RN) Gen Hx Adams-Sachs: No (12/12/2016 16:56:Caron Elkins RN) Gen Hx Don: No (12/12/2016 16:56:Caron Elkins RN) Gen Hx Familial Dysautonomia: No (12/12/2016 16:56:Caron Elkins RN) Gen Hx Sickle Cell Disease/Trait: No (12/12/2016 16:56:Caron Elkins RN) Gen Hx Hemophilia/Blood Disorder: No (12/12/2016 16:56:Caron Elkins RN) Gen Hx Muscular Dystrophy: No (12/12/2016 16:56:Caron Elkins RN) Gen Hx Cystic Fibrosis: No (12/12/2016 16:56:Caron Elkins RN) Gen Hx Huntingtons Chorea: No (12/12/2016 16:56:Caron Elkins RN) Gen Hx Mental Retardation/Autism: No (12/12/2016 16:56:Caron Elkins RN) Gen Hx Tested for Fragile X: No (12/12/2016 16:56:Caron Elkins RN) Gen Hx Other Inher/Chromosomal: No (12/12/2016 16:56:Caron Elkins RN) Gen Hx Maternal Metabolic DO: No (12/12/2016 16:56:Caron Elkins RN) Gen Hx Pt Father or FOB Defect: No (12/12/2016 16:56:Caron Elkins RN) Gen Hx Other Genetic History: No (12/12/2016 16:56:Caron Elkins RN) Gen Hx Drugs/Meds since LMP: No (12/12/2016 16:56:Caron Elkins RN)
--- NOTE | 2016-12-23 06:01 | L&D Current Admission ---
Current Admit Datetime Report Generated by CPN: 12/23/2016 06:00 ADMISSION INFORMATION Current Admit Date/Time: 12/19/2016 14:00 (12/19/2016 14:26:Caron Elkins RN) Reason for Admission: Rupture of Membranes (12/19/2016 14:26:Caron Elkins RN) Chief Complaint: Suspected Rupture of Membranes (12/19/2016 14:17:Caron Elkins RN) EGA per Dates: 39.6 (12/19/2016 14:26:QS system process) Method of Arrival: Ambulatory; Direct Admit (12/19/2016 14:26:Caron Elkins RN) Admitted From: Office (12/19/2016 14:26:Caron Elkins RN) Reason for Induction: Gestational Hypertension (12/19/2016 14:26:Caron Elkins RN) Records Available: Yes (12/19/2016 14:26:Caron Elkins RN) General Admission Information: Reviewed; Confirmed (12/19/2016 14:26:Caron Elkins RN) General Admission Reviewed By: Erica Elkins RN (12/19/2016 14:26:Caron Elkins RN) BELONGINGS/ADVANCED DIRECTIVES Other Belongings: See belongings consent (12/19/2016 14:26:Caron Elkins RN) Disposition of Belongings: Kept with Patient (12/19/2016 14:26:Caron Elkins RN) Advance Direct for Healthcare: No, and Wants No Information (12/19/2016 14:26:Caron Elkins RN) Durable Power of Auto Parts Clerk: No (12/19/2016 14:26:Caron Elkins RN) Living Will: No (12/19/2016 14:26:Caron Elkins RN) Organ Donor: Yes (12/19/2016 14:26:Caron Elkins RN) Pt Rights Information Given: Yes (12/19/2016 14:26:Caron Elkins RN) Pt Understands Pt Rights: Yes (12/19/2016 14:26:Caron Elkins RN) LEARNING ASSESSMENT Knowledge Level: Understands L_D Process; Understands Care Activities; Had Pre-Hospital Education; Understands Diagnosis (12/19/2016 14:26:Caron Elkins RN) Barriers to Learning: None (12/19/2016 14:26:Caron Elkins RN) Learning Readiness: Motivated (12/19/2016 14:26:Caron Elkins RN) Learns Best By: 1 to 1 Instruction (12/19/2016 14::Caron Elkins RN) Learning Needs: Labor and Delivery Process; Pain Management; Symptoms to Report; Treatment Plan; Medication; Diagnosis; Nutrition; Equipment; Care; Community Resources (12/19/2016 14::Caron Elkins RN) NUTRITIONAL/FUNCTIONAL SCREENING Problem with Appetite >5 Days: No (12/19/2016 14:26:Caron Elkins RN) Chew/Swallow Difficulties: No (12/19/2016 14:26:Caron Elkins RN) Inappropriate Wt Gain/Loss: No (12/19/2016 14:26:Caron Elkins RN) Presence Skin Breakdown/Ulcer: No (12/19/2016 14:26:Caron Elkins RN) Special Diet: No (12/19/2016 14:26:Caron Elkins RN) Pt Requests Water Quality Manager Visit: No (12/19/2016 14:26:Caron Elkins RN) Hx of Any of the Following?: N/A (12/19/2016 14:26:Caron Elkins RN) New Diagnosis of: Gestational Hypertension (12/19/2016 14:26:Caron Elkins RN) Requires Assist w/Ambulation: No (12/19/2016 14:26:Caron Elkins RN) Uses Assist Device to Ambulate: No (12/19/2016 14:26:Caron Elkins RN) Pt Requires Help w/ADL's: No (12/19/2016 14:26:Caron Elkins RN)
== END 2016-12-22 12:30 | disposition home or self-care (01) | DRG 775 ==
LOC: LC 13:52 → LR 14:15 → 2S 12-20 04:39
PROVIDERS: ADMIT Obstetrics & Gynecology; ATTEND Obstetrics & Gynecology
PROC: 4A0HXCZ Measurement of Products of Conception, Cardiac Rate, External Approach (ICD-10-PCS; 2016-12-19)
PROC: 10E0XZZ Delivery of Products of Conception, External Approach (ICD-10-PCS; principal; 2016-12-20)
PROC: 0HQ9XZZ Repair Perineum Skin, External Approach (ICD-10-PCS; 2016-12-20)
DX: O13.3 Gestational [pregnancy-induced] hypertension without significant proteinuria, third trimester (principal); Z68.41 Body mass index [BMI] 40.0-44.9, adult; O77.0 Labor and delivery complicated by meconium in amniotic fluid; O70.0 First degree perineal laceration during delivery; O99.52 Diseases of the respiratory system complicating childbirth; J45.909 Unspecified asthma, uncomplicated; O99.214 Obesity complicating childbirth; O99.824 Streptococcus B carrier state complicating childbirth; Z3A.40 40 weeks gestation of pregnancy; Z37.0 Single live birth; E66.9 Obesity, unspecified
CPT/HCPCS: 36415; 80053; 80307; 81005; 83615; 84112; 84550; 85025; 85027; 86850; 86900; 86901; 94760; 99465; J2300; J2370; J2405; J2540; J2590; J3010; J3490